=== PATIENT | female | born 1940 | race Caucasian/White ===

== ENCOUNTER → 2017-09-23 12:56 | Outpatient (CLI) | payer MEDICARE, SELFPAY ==
--- NOTE | 2017-09-23 13:07 | XR_ITS ---
EXAM: XR lumbar spine min 4V HISTORY: Left-sided back pain ITS.REASON: LT SCIATICA ORDERING PHYSICIAN: Randall Iqbal MD PATIENT AGE: 77 years FINDINGS: Mild lumbar scoliosis convex right. There is multilevel degenerative disc disease and facet arthritic change. Prominent osteophytes are noted on the right at 405 with multilevel degenerative disc disease from T11 to S1 along with endplate osteophytes at T11 T12 T12 L1 L1 L2 and L2-L3 and L4-L5. Severe facet hypertrophic changes are present as well from L3 to S1 greatest at L4-L5 on the right. There is mild wedging T12 and T11 which may be chronic. IMPRESSION: Moderate to severe spondylosis of the lumbar spine with multilevel degenerative disc disease, bony spurring, and facet arthritic change with scoliosis
--- NOTE | 2017-09-23 13:07 | XR_ITS ---
XR hip LT 2-3V w/pelvis HISTORY: Left-sided pain ITS.REASON: LT SCIATICA ORDERING PHYSICIAN: Randall Iqbal MD PATIENT AGE: 77 years FINDINGS: Mild to moderate osteoarthritic changes are present involving the left hip with decrease in joint space and osteophyte formation. No fracture or dislocation. No lytic or blastic change. Surgical clips are present in the pelvis. There are mild osteoarthritic changes of the right hip and there are degenerative changes in the lower lumbar spine. 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
== END ==
PROVIDERS: PCP Family Medicine; Visit Provider Family Medicine
DX: M54.32 Sciatica, left side (principal)
CPT/HCPCS: 72110; 73502

== ENCOUNTER 2017-11-05 08:00 | Outpatient (RCR) | payer MEDICARE, SELFPAY ==
--- NOTE | 2017-10-08 09:57 | HMH.PTOPEV ---
Rehab Outpatient Evaluation Rehab OP Evaluation Start: 10/08/17 09:25 Freq: Status: Active Protocol: Document 10/08/17 09:25 QUIQUE (Rec: 10/08/17 09:57 QUIQUE [id number]) Electronically Signed By Amari Giles, PT 10/08/17 09:25 Outpatient Therapy Subjective History Subjective History Pt reports insidious onset L hip/ L LE pain beginning ~1 month ago. Pt reports pain started in L glut mm area, with intermittent L knee radicular s/s (weakness and N& T). Pt reports 2 falls d/t L knee buckling. Chief Complaint Pain Gives out/Unstable Paresthesia Weakness Symptom Type Ache Throb Dull Numbness Tingling Symptoms Relieved By Rest/Positioning Symptoms Aggravated By Standing Walking Prior Functional Limitations None Current Functional Limitations Housework Standing Walking Symptom Description Intermittent Level of pain today (0-10) 0 Pain scale - at its best (0-10) 0 Pain scale - at its worst (0-10) 2 Lumbopelvic Eval Posture Thoracic Spine Posture Standing Position Neutral Lumbar Spine Posture Standing Position Neutral Assistive device Assistive Devices None / NA Gait Observation General Gait Pattern Observation No Deviations/Normal Palapation tenderness left buttock tenderness Yes: 1/4 Range of Motion Lumbar Spine Active Flexion Range of 0-40 Motion (degrees) Lumbar Spine Active Extension Range of 0-10 Motion (degrees) Left Lumbar Spine Lateral Flexion Active 0-20 Range of Motion (degrees) Right Lumbar Spine Lateral Flexion 0-20 Active Range of Motion (degrees) Manual Muscle Test Right Knee Extension Strength Grade 5 Normal Knee Flexion Strength Grade 5 Normal Hip Flexion Strength Grade 5 Normal Extensor Hallucis Longus Strength Grade 5 Normal Ankle Dorsiflexion Strength Grade 5 Normal Gastronemius/Soleus Strength Grade 5 Normal Left Knee Extension Strength Grade 5 Normal Knee Flexion Strength Grade 4 Good Hip Flexion Strength Grade 4 Good Extensor Hallucis Longus Strength Grade 4 Good Ankle Dorsiflexion Strength Grade 5 Normal Gastronemius/Soleus Strength Grade 5 Normal DTR Rt Patellar 1+ Lt
== END 2017-11-05 08:01 | disposition home or self-care (01) ==
LOC: PT 08:00
PROVIDERS: Family Provider Family Medicine; PCP Family Medicine; Visit Provider Family Medicine
DX: M54.32 Sciatica, left side (principal)
CPT/HCPCS: 97110; 97163

== ENCOUNTER → 2019-01-21 13:46 | Outpatient (CLI) | payer MEDICARE, SELFPAY ==
--- NOTE | 2019-01-21 13:51 | CT_ITS ---
PROCEDURE: CT ABDOMEN PELVIS WO CON CLINICAL HISTORY: RECURRENT UTIS Pain, recurring UTIs COMPARISON: ABDPELW/O CT ABD PELVIS W/O CONTRAST from 03/08/2014 TECHNIQUE: Axial images obtained with sagittal and coronal reformats. All CT scans at the facility use one or more dose reduction, viz: automated exposure control, ma/kV adjustment per patient size (including targeted exams where dose is matched to indication, i.e. head), or iterative reconstruction technique. FINDINGS: There is a large hiatal hernia with some compressive atelectatic changes in the right lung base. Coronary artery calcifications are noted. The liver, spleen, adrenal glands, pancreas, and gallbladder has an unremarkable unenhanced CT appearance. No renal or ureteral calculi. No hydronephrosis. There is hyperdense nodule along the upper pole of the left kidney which measures 2 cm. The density is 62 Hounsfield units greater than what 1 would expect for simple cyst. Therefore, ultrasound is suggested for further evaluation. No evidence of appendicitis, diverticulitis, intestinal obstruction, or free air. There are post hysterectomy changes. Surgical clips are present in the pelvic region. There is mild amount of retained colonic feces. There are degenerative changes in the lumbar spine with lumbar scoliosis convex right. Mild degenerative changes of the hips. IMPRESSION: Hyperdense 2 cm left renal nodule. Recommend ultrasound for further evaluation to determine cystic or solid nature. No renal or ureteral calculi Large hiatal hernia Dictated by: Renato Watts MD 01/22/2019 05:34 Signed by: <Electronically signed by Renato Watts MD in [place]> 01/22/2019 05:34
== END ==
PROVIDERS: PCP Family Medicine; Visit Provider Family Medicine
DX: N39.0 Urinary tract infection, site not specified (principal)
CPT/HCPCS: 74176

== ENCOUNTER → 2019-02-01 09:57 | Outpatient (CLI) | payer MEDICARE, SELFPAY ==
--- NOTE | 2019-02-01 10:00 | US_ITS ---
PROCEDURE: US KIDNEY CLINICAL INDICATION: NODULE OF KIDNEY Left renal nodule versus complex cyst on recent CT scan COMPARISON: ABDPELW/O CT ABD PELVIS W/O CONTRAST from 03/08/2014 KID US [id number] from 03/30/2014 CT ABDOMEN PELVIS WO CON from 01/21/2019 FINDINGS: The right kidney measures 8 x 4 x 7 cm. There is mild ectasia of the right renal collecting system and mild cortical thinning. There is mild prominence of the right ureter. The left kidney is 10 x 4 x 5 cm. In the upper pole of the left kidney there is a 1.8 by 1.9 cm cyst which may correspond to the CT abnormality. The CT abnormality does appear slightly larger than the above-mentioned measurements however this could be due to difference in scanning techniques. IMPRESSION: Hyperdense nodule of the left kidney may represent a proteinaceous cyst. Consider six-month follow-up to confirm stability Dictated by: Renato Watts MD 02/01/2019 18:09 Signed by: <Electronically signed by Renato Watts MD in [place]> 02/01/2019 18:09
== END ==
PROVIDERS: PCP Family Medicine; Visit Provider Family Medicine
DX: N28.89 Other specified disorders of kidney and ureter (principal)
CPT/HCPCS: 76770

== ENCOUNTER 2020-09-14 09:25 | Emergency (ER) | payer MEDICARE, SELFPAY ==
[2020-09-14 09:26] VITALS: BP 140/76; PULSE 67; RESP 16; TEMP 36.8; O2SAT 98; BMI 28.3
[2020-09-14 09:40] VITALS: BP 140/76; PULSE 67; RESP 16; TEMP 36.8; O2SAT 98; BMI 28.3
--- NOTE | 2020-09-14 09:54 | HMH.EDUTC ---
[facility] Disposition Clinical Impression: Contusion, eye Qualifiers: Encounter type: initial encounter Laterality: left Qualified Code(s): S05.12XA - Contusion of eyeball and orbital tissues, left eye, initial encounter Disposition: Home, Self-Care Condition on Discharge: Good Instructions: DI for Eye Contusion, Eye Contusion Additional Instructions: Ice to the area every 20 minutes several times daily Watch area for signs of worsening if you notice you are having any worsening of bruising or swelling follow up immediately with Family Doctor and/or Dr Simpson at [facility] Return if needed Straight to ER if any life threatening symptoms Referrals: Randall Iqbal MD [Primary Care Provider] - As needed [facility] [Other] Time of Disposition: 10:12 Medical Decision Making - Panchito Inquiry Pt receiving controlled substance: No Panchito was queried for this patient: No Vital Signs: 09/14/20 09:26 09/14/20 09:40 09/14/20 10:15 Temperature 98.3 F 98.3 F 98.3 F Temperature Source Oral Oral Pulse Rate 67 Pulse Rate [Right] 67 67 Respiratory Rate 16 16 16 Blood Pressure 140/76 Blood Pressure [Right Arm] 140/76 140/76 Blood Pressure Mean [Right Arm] 97 97 Blood Pressure Source [Right Arm] Automatic Cuff Blood Pressure Position [Right Arm] Sitting 02 Sat by Pulse Oximetry 98 98 Oxygen Delivery Method Room Air Room Air [facility] HPI - General Stated complaint: left eye bruised Time Seen by Provider: 09/14/20 09:54 Mode of Arrival: Ambulatory Source of Information: Patient Limitations: No Limitations Description of Symptoms (Recalled from Triage Doc. by RN): PATIENT C/O BRUISING TO INNER LEFT EYE. SHE STATES SHE NOTICED IT THIS MORNING WHEN SHE WOKE UP. NO KNOWN INJURY. NO VISION CHANGES. HEENT Symptoms (Recalled from RN notes): Yes Resp Symptoms (Recalled from RN notes): No Skin Symptoms (Recalled from RN notes): No MS Symptoms (Recalled from RN notes): No Functional Status (Recalled from RN notes): WNL - History of Present Illness Provider Complaint: Patient states that she woke up yesterday morning and noticed she had some bruising around the corner of her left eye States that she does not remember doing anything to cause injury but did wear a pair of plastic glasses in bed the night before while reading and they may have caused the bruising States that she did not fall asleep with them on States that she noticed the bruising but area is not tender, not swollen just bruised. States that she has not had any known injury and denies changes in vision. - Related Data Home Medications Medication Instructions Recorded Confirmed gabapentin 100 mg capsule PO #120 cap 02/11/19 02/11/19 hydrochlorothiazide 12.5 mg capsule PO #90 cap 02/11/19 02/11/19 lisinopril 5 mg tablet PO #90 tab 02/11/19 02/11/19 metoprolol succinate 50 mg PO #90 tab 02/11/19 02/11/19 tablet,extended release 24 hr pravastatin 40 mg tablet PO #90 tab 02/11/19 02/11/19 tramadol 37.5 mg-acetaminophen 325 PO #90 tab 02/11/19 02/11/19 mg tablet Previous Rx's Medication Instructions Recorded fluticasone propionate 50 1 spray INTRANASAL DAILY #9.9 g 09/10/18 mcg/actuation nasal spray,suspension montelukast 10 mg tablet 10 mg PO QPM #30 tab 09/10/18 Allergies Allergy/AdvReac Type Severity Reaction Status Date / Time Penicillins Allergy Verified 09/14/20 09:51 - Worker's Comp Is this a Worker's Comp case?: No [facility] History - Hepatitis A Screen Drug use history?: No High risk sexual behaviors?: No History of sexually transmitted infection?: No Currently employed?: No Childcare worker?: No Do you have indoor plumbing?: Yes Do you have electricity?: Yes Attestation statement:: This patient has been screened for Hepatitis A risk factors. I have reviewed the patient's past medical history: Yes - Social History Smoking Status: Never smoker Alcohol Intake: never Occupational Status: o
[2020-09-14 10:15] VITALS: BP 140/76; PULSE 67; RESP 16; TEMP 36.8; O2SAT 98
== END 2020-09-14 10:20 | disposition home or self-care (01) ==
PROVIDERS: Emergency Provider Nurse Practitioner; PCP Family Medicine
DX: S05.12XA Contusion of eyeball and orbital tissues, left eye, initial encounter (principal); I10 Essential (primary) hypertension; Z88.0 Allergy status to penicillin; Z79.899 Other long term (current) drug therapy
CPT/HCPCS: 99202; G0463

== ENCOUNTER → 2021-01-15 10:33 | Outpatient (CLI) | payer MEDICARE, SELFPAY | PROVIDERS: PCP Family Medicine; Visit Provider Family Medicine | DX: Z20.822 Contact with and (suspected) exposure to COVID-19 (principal) | CPT/HCPCS: U0003 ==

== ENCOUNTER → 2021-09-06 12:38 | Outpatient (CLI) | payer MEDICARE, SELFPAY ==
--- NOTE | 2021-09-06 12:47 | US_ITS ---
FINAL REPORT TECHNIQUE: Ultrasound images of the kidneys and bladder were obtained. CLINICAL HISTORY: LT KIDNEY NODULE FINDINGS: The right kidney measures 8.2 cm cm in length. There is renal cortical thinning. There is no hydronephrosis. The left kidney measures 11 cm in length. There is renal cortical thinning. There is a increased echogenicity of the left kidney which is worrisome for medical renal disease. There are several cysts measuring up to 1.9 cm. There is no hydronephrosis. The spleen is unremarkable. IMPRESSION: Bilateral renal cortical thinning. Increased echogenicity of the left kidney worrisome for medical renal disease. Several left renal cysts as described. Reviewed, Interpreted and Dictated by Tono Cerna III, MD Transcribed by Teresa Womack Authenticated by Tono Cerna III, MD on 09/06/2021 04:06:10 PM [facility]
== END ==
PROVIDERS: PCP Family Medicine; Visit Provider Family Medicine
DX: N28.89 Other specified disorders of kidney and ureter (principal)
CPT/HCPCS: 76770

== ENCOUNTER → 2021-10-04 10:39 | Outpatient (CLI) | payer MEDICARE, SELFPAY ==
--- NOTE | 2021-10-04 10:44 | MM_ITS ---
PROCEDURE INFORMATION: Exam: MG Bilateral Screening 3D Mammography Exam date and time: 10/04/2021 10:40 AM Age: 81 years old Clinical indication: Screening examination TECHNIQUE: Imaging protocol: Bilateral Screening tomosynthesis and 2D mammography including computer-aided detection (CAD) when performed. COMPARISON: No relevant prior studies available. FINDINGS: MAMMOGRAPHY: Breast composition: There are scattered areas of fibroglandular density. Mass: None. Architectural distortion: None. Calcifications: No suspicious calcifications. Asymmetric density: None. Skin thickening: None. Axillary adenopathy: None. IMPRESSION: No mammographic evidence of malignancy. Annual screening is recommended unless otherwise clinically indicated. ASSESSMENT: BI-RADS Category 1: Negative
== END ==
PROVIDERS: PCP Family Medicine; Visit Provider Obstetrics & Gynecology
DX: Z12.31 Encounter for screening mammogram for malignant neoplasm of breast (principal)
CPT/HCPCS: 77063; 77067

== ENCOUNTER → 2022-03-06 09:59 | Outpatient (CLI) | payer MEDICARE, SELFPAY ==
[2022-03-06 10:20] LABS: Microscopic, Urine URINE MICROSCOPIC (MICROSCOPIC)
[2022-03-06 10:59] LABS: Basophils # 0.1 K/mm3 (0-0.2); Eosinophils # 0.1 K/mm3 (0.0-0.4); Eosinophils % 1.4 % (0.1-12.0); Lymphocytes # 1.4 K/mm3 (0.7-4.5); Lymphocytes % 17.7 % (10-50); Mean Corpuscular HGB Conc 33.4 g/dL (31.8-35.4); Mean Corpuscular Hemoglobin 32.3 pg (27.0-31.2); Mean Corpuscular Volume 96.7 fl (81-99); Mean Platelet Volume 8.2 fl (7.4-10.4); Monocytes # 0.5 K/mm3 (0.1-1.0); Monocytes % 6.4 % (1.7-9.3); Neutrophils # 5.7 K/mm3 (1.8-7.8); Neutrophils % 73.5 % (37.0-80.0); Platelet Count 279 K/mm3 (142-424); Red Blood Count 4.03 M/mm3 (4.20-5.40); Red Cell Distribution Width 13.3 % (11.5-17.5); White Blood Count 7.7 K/mm3 (4.8-10.8)
[2022-03-06 11:00] LABS: Appearance,Urine CLEAR (Clear); Bilirubin,Urine Negative (Negative); Blood, Urine Negative (Negative); Color,Urine YELLOW (Yellow); Glucose,Urine (UA) Negative (Negative); Ketones,Urine Negative (Negative); Leukocyte Esterase,Urine 1+ (Negative); Nitrate,Urine Negative (Negative); Protein,Urine Negative (Negative); Specific Gravity, Urine 1.015 (1.005-1.030); Urobilinogen,Urine 0.2 EU/dl (0.2)
[2022-03-06 11:08] LABS: Creatinine,Urine Random 138 mg/dL (Not Estab.)
[2022-03-06 11:16] LABS: Bacteria,Urine Trace /lpf; WBC,Urine Occasional #/hpf (0-3)
[2022-03-06 11:22] LABS: Anion Gap 12.9 mEq/L (5-15); Blood Urea Nitrogen 18 mg/dl (7-17); Calcium 9.5 mg/dl (8.4-10.2); Carbon Dioxide 28 mmol/L (22.0-30.0); Chloride 102 mmol/L (98-107); Estimated Glomerular Filt Rate 31 ml/min (>60); GFR (African American) 37 ML/MIN (>60); Glucose 79 mg/dl (74-100); Phosphorous 4.2 mg/dl (2.5-4.5); Potassium 4.9 mmoL/L (3.5-5.1); Sodium 138 mmol/L (136-145)
[2022-03-06 11:34] LABS: Intact Parathyroid Hormone 112.5 pg/mL (7.5-53.5)
[2022-03-06 11:39] LABS: 25-OH Vitamin D, Total 39.6 ng/mL (30-100)
== END ==
PROVIDERS: PCP Family Medicine; Visit Provider Internal Medicine Nephrology
DX: N18.32 Chronic kidney disease, stage 3b (principal); E55.9 Vitamin D deficiency, unspecified; R82.998 Other abnormal findings in urine
CPT/HCPCS: 36415; 80069; 81001; 82306; 82570; 83970; 84155; 85025; 87086

== ENCOUNTER → 2022-03-14 13:14 | Outpatient (POV) | payer MEDICARE, SELFPAY | PROVIDERS: Visit Provider Internal Medicine Nephrology | DX: Z00.00 Encounter for general adult medical examination without abnormal findings (principal) ==

== ENCOUNTER → 2022-06-04 09:50 | Outpatient (CLI) | payer MEDICARE, SELFPAY ==
--- NOTE | 2022-06-04 | CA_ITS ---
FINAL REPORT TECHNIQUE: Color Doppler, duplex Doppler and doherty scale sonography of the bilateral neck arterial vasculature was performed. Velocities were measured in the carotid arteries. Stenosis evaluation based on the validated velocity criteria. CLINICAL HISTORY: .Dizziness, HTN, HLD FINDINGS: The peak systolic velocity of the right common carotid artery is 110 cm/s. The peak systolic velocity of the right internal carotid artery is 101 cm/s and end diastolic velocity 28 cm/s. The ICA/CCA ratio is 1.0. A small amount of plaque is present. The right external carotid artery is patent. The right vertebral artery is patent with antegrade flow. The peak systolic velocity of the left common carotid artery is 109 cm/s. The peak systolic velocity of the left internal carotid artery is 114 cm/s and end diastolic velocity 38 cm/s. The ICA/CCA ratio is 1.1. A small amount of plaque is present. The left external carotid artery is patent.The left vertebral artery is patent with antegrade flow. IMPRESSION: Less than 50% bilateral carotid stenoses. Bilateral patent vertebral arteries with antegrade flow. If indicated, CTA or MRA could further evaluate. Reviewed, Interpreted and Dictated by Tono Cerna III, MD Transcribed by Mary Jackson Authenticated and [facility]
== END ==
PROVIDERS: PCP Family Medicine; Visit Provider Nurse Practitioner Family
DX: R42 Dizziness and giddiness (principal)
CPT/HCPCS: 93880

== ENCOUNTER → 2022-06-13 10:38 | Outpatient (CLI) | payer MEDICARE, SELFPAY ==
[2022-06-13 10:48] LABS: Microscopic, Urine URINE MICROSCOPIC (MICROSCOPIC)
[2022-06-13 11:26] LABS: Hematocrit 36.7 % (37.0-47.0); Hemoglobin 12.2 g/dL (12.2-16.2); Mean Corpuscular HGB Conc 33.3 g/dL (31.8-35.4); Mean Corpuscular Hemoglobin 32.1 pg (27.0-31.2); Mean Corpuscular Volume 96.5 fl (81-99); Platelet Count 245 K/mm3 (142-424); Red Cell Distribution Width 13.3 % (11.5-17.5); White Blood Count 8.1 K/mm3 (4.8-10.8)
[2022-06-13 11:53] LABS: Appearance,Urine CLEAR (Clear); Bilirubin,Urine Negative (Negative); Blood, Urine Negative (Negative); Color,Urine YELLOW (Yellow); Glucose,Urine (UA) Negative (Negative); Ketones,Urine Negative (Negative); Leukocyte Esterase,Urine TRACE (Negative); Nitrate,Urine Negative (Negative); Protein,Urine Negative (Negative); Urobilinogen,Urine 0.2 EU/dl (0.2)
[2022-06-13 11:59] LABS: Albumin Level 4.1 g/dl (3.5-5.0); Chloride 107 mmol/L (98-107); Sodium 139 mmol/L (136-145)
[2022-06-13 12:02] LABS: Blood Urea Nitrogen 20 mg/dl (7-17); Calcium 9.2 mg/dl (8.4-10.2); Carbon Dioxide 24 mmol/L (22.0-30.0); Estimated Glomerular Filt Rate 36 ml/min (>60); GFR (African American) 43 ML/MIN (>60); Glucose 84 mg/dl (74-100); Phosphorous 3.9 mg/dl (2.5-4.5)
[2022-06-13 12:09] LABS: Creatinine,Urine Random 181 mg/dL (Not Estab.)
[2022-06-13 12:25] LABS: Squamous Epithelial Cell,Urine Occasional #/hpf (0-5)
== END ==
PROVIDERS: PCP Psychiatry & Neurology Sleep Medicine; Visit Provider Internal Medicine Nephrology
DX: N28.9 Disorder of kidney and ureter, unspecified (principal)
CPT/HCPCS: 36415; 80069; 81001; 82570; 84155; 85014; 85018; 85048; 85049

== ENCOUNTER → 2022-06-17 13:10 | Outpatient (POV) | payer MEDICARE, SELFPAY | PROVIDERS: Visit Provider Internal Medicine Nephrology | DX: Z00.00 Encounter for general adult medical examination without abnormal findings (principal) ==

== ENCOUNTER → 2022-08-12 09:05 | Outpatient (CLI) | payer MEDICARE, SELFPAY ==
--- NOTE | 2022-08-12 09:09 | XR_ITS ---
FINAL REPORT TECHNIQUE: Bone densitometry calculations of the lumbar spine and hip were obtained. CLINICAL HISTORY: . POST MENOPAUSAL SCREENING FINDINGS: DEXA BONE DENSITY AXIAL SKELETON Using L1-4, the bone mineral density of the spine is 1.261 g/cm2, corresponding to T-score of 1.9. Using the left hip, the bone mineral density of the femoral neck is 0.865 g/cm2, corresponding to a T-score of -0.6. NOTE: T-score: Standard deviation compared with peak bone mass of young adult mean. *Following the recommendations of the International Society of Bone densitometry, classification of hip BMD is based on the lower of two T-scores; total hip or femoral neck. IMPRESSION: Normal bone mineral density of the lumbar spine and left hip. Reviewed, Interpreted and Dictated by Tono Cerna III, MD Transcribed by Teresa Womack Authenticated and [facility]
== END ==
PROVIDERS: PCP Psychiatry & Neurology Sleep Medicine; Visit Provider Family Medicine
DX: Z78.0 Asymptomatic menopausal state (principal)
CPT/HCPCS: 77080

== ENCOUNTER → 2023-01-09 15:04 | Outpatient (CLI) | payer MEDICARE, SELFPAY ==
--- NOTE | 2023-01-09 15:08 | MM_ITS ---
PROCEDURE INFORMATION: Exam: MG Bilateral Screening 3D Mammography Exam date and time: 01/09/2023 2:58 PM Age: 82 years old Clinical indication: Screening examination TECHNIQUE: Imaging protocol: Bilateral Screening tomosynthesis and 2D mammography including computer-aided detection (CAD) when performed. COMPARISON: 1. MG MM DIG SCREENING MAMM BI W/CAD 10/04/2021 10:40 AM 2. MG MAMMO SCREENING DIGITAL TOMOSYNTHESIS BILATERAL W CAD 01/21/2020 12:58 PM FINDINGS: MAMMOGRAPHY: Breast composition: There are scattered areas of fibroglandular density. Mass: None. Architectural distortion: None. Calcifications: No suspicious calcifications. Asymmetric density: None. Skin thickening: None. Axillary adenopathy: None. IMPRESSION: No mammographic evidence of malignancy. Annual screening is recommended unless otherwise clinically indicated. ASSESSMENT: BI-RADS Category 1: Negative
== END ==
PROVIDERS: PCP Psychiatry & Neurology Sleep Medicine; Visit Provider Family Medicine
DX: Z12.31 Encounter for screening mammogram for malignant neoplasm of breast (principal)
CPT/HCPCS: 77063; 77067

== ENCOUNTER → 2023-01-30 14:25 | Outpatient (CLI) | payer MEDICARE, SELFPAY ==
--- NOTE | 2023-01-30 | CA_ITS ---
APPROVED REPORT EXAM: Comprehensive 2D, Doppler, and color-flow Echocardiogram Receiving Lead: Lynne Santiago CRT Ht: 5 ft 0 in Wt: 157lbs BSA: 1.68 BP: 133/76 mmHg Indications: Fatigue, Hyperlipidemia, Hypertension/HDD, CKD 2D Dimensions LVOT 1.66 cm (M/F) 1.5-2.5 LA Volume 41.80 mL LA Volume Index 24.30 mL/m2 (M/F) 16-34 M-Mode Dimensions RVDd 2.21 cm (0.9-2.6) LA Diam 2.85 cm (1.9-4.0) LVDd 3.57 cm (3.5-5.7) Ao Diam 3.07 cm (2.0-3.7) LVDs 1.99 cm (3.5-5.7) IVSd 1.71 cm (0.6-1.1) PWd 0.73 cm (0.6-1.1) EF (Teich) 76.40% FS 44.30% EDV (Teich) 53.30 mL TAPSE 2.42 (<1.7) ESV (Teich) 12.60 mL LV Diastology E Decel Time 263.00 (160-240 msec) E/A Ratio 1.07 MED E' 7.30 (< 7 cm/sec) MED A' 9.10 cm/s E'/MED E' Ratio 13.95 (>14) LAT E' 5.40 (<10 cm/sec) LAT A' 11.10 cm/s E/LAT E' Ratio 18.85 (>14) Aortic Valve AO Peak GR. 9.70 mmHg Mitral Valve MV E Max Davie. 102.00 (40-130 cm/s) MV A Velocity 95.00 (40-130 cm/s) E/A Ratio 1.07 MV Decel. Time 263.00 (160-240 ms) MV PHT 77.00 ms Pulmonary Valve PV Peak Velocity 124.00 (50-150 cm/s) Tricuspid Valve TR P. Velocity 296.00 cm/s RAP Estimate 10.00 mmHg RVSP 45.00 mmHg Left Ventricle The left ventricle is normal size. The left ventricular systolic function is normal. The left ventricular ejection fraction is within the normal range. There is proximal septal thickness present. There is normal LV segmental wall motion. Diastolic function is indeterminate. LVEF is 55%. Right Ventricle The right ventricle is normal size. The right ventricular systolic function is normal. Atria The left atrium size is normal. The right atrium size is normal. There is no Doppler evidence of interatrial shunt. Aortic Valve The aortic valve is mildly thickened. There is no aortic valvular stenosis. No aortic regurgitation is present. Mitral Valve The mitral valve is mildly thickened. No evidence of mitral valve stenosis. Trace mitral regurgitation. Tricuspid Valve The tricuspid valve leaflets are thin and pliable. Trace tricuspid regurgitation. RVSP is 30-35 mmHg. Pulmonic Valve The pulmonary valve is normal in structure. Trace pulmonic regurgitation. Great Vessels The aortic root is normal in size. The ascending aorta is normal in size. IVC is normal in size and collapses >50% with inspiration. Pericardium There is no pericardial effusion. Other Information Study Quality: Fair Conclusion Normal biventricular systolic function. No significant valvular disease. Electronically signed by : Monica Crawley, 01/31/2023 22:13:00
== END ==
PROVIDERS: PCP Psychiatry & Neurology Sleep Medicine; Visit Provider Family Medicine
DX: R53.83 Other fatigue (principal); E78.5 Hyperlipidemia, unspecified; N28.89 Other specified disorders of kidney and ureter; I11.9 Hypertensive heart disease without heart failure; R42 Dizziness and giddiness; R06.09 Other forms of dyspnea
CPT/HCPCS: 93306

== ENCOUNTER → 2023-02-03 10:03 | Outpatient (CLI) | payer MEDICARE, SELFPAY ==
--- NOTE | 2023-02-03 10:18 | US_ITS ---
FINAL REPORT TECHNIQUE: Ultrasound images of the kidneys and bladder were obtained. CLINICAL HISTORY: NODULE COMPARISON: 09/06/2021 FINDINGS: The right kidney measures 8 cm in length. The left kidney measures 10 cm in length. Renal cortical thinning and mild increased echogenicity are once again noted suggestive of medical renal disease. There are multiple small cysts in the left kidney, the largest measuring 2.2 cm in size in the upper pole, slightly larger than noted on the prior exam. There is no hydronephrosis. IMPRESSION: Findings suggestive of medical renal disease, not significantly changed since the prior exam of 2021. Reviewed, Interpreted and Dictated by Celso Bourgeois MD Transcribed by Cecilia Bland Authenticated and . [facility]
== END ==
PROVIDERS: PCP Family Medicine; Visit Provider Family Medicine
DX: N28.89 Other specified disorders of kidney and ureter (principal); R93.422 Abnormal radiologic findings on diagnostic imaging of left kidney
CPT/HCPCS: 76770

== ENCOUNTER → 2023-02-13 13:20 | Outpatient (POV) | payer MEDICARE, SELFPAY | PROVIDERS: Visit Provider Internal Medicine Nephrology | DX: Z00.00 Encounter for general adult medical examination without abnormal findings (principal) ==

== ENCOUNTER → 2023-04-09 12:30 | Outpatient (CLI) | payer MEDICARE, SELFPAY ==
--- NOTE | 2023-04-09 13:13 | XR_ITS ---
FINAL REPORT CLINICAL HISTORY: shortness of breath with exertion COMPARISON: None FINDINGS: Two views of the chest were obtained. The heart size and pulmonary vascularity are within normal limits. The mediastinum is normal. There is a large hiatal hernia. No acute pulmonary abnormality is identified. There is no pneumothorax. The bony thorax is intact. IMPRESSION: No active cardiopulmonary disease. Reviewed, Interpreted and Dictated by Tono Cerna III, MD Transcribed by Diamante Franks Authenticated and . [facility]
[2023-04-09 13:23] LABS: Basophils # 0.1 K/mm3 (0-0.2); Basophils % 0.7 % (0.1-2.0); Eosinophils # 0.2 K/mm3 (0.0-0.4); Eosinophils % 1.7 % (0.1-12.0); Hematocrit 39.9 % (37.0-47.0); Hemoglobin 14.1 g/dL (12.2-16.2); Lymphocytes # 2.1 K/mm3 (0.7-4.5); Lymphocytes % 22.8 % (10-50); Mean Corpuscular HGB Conc 35.3 g/dL (31.8-35.4); Mean Corpuscular Hemoglobin 33.7 pg (27.0-31.2); Mean Corpuscular Volume 95.4 fl (81-99); Mean Platelet Volume 8.2 fl (7.4-10.4); Monocytes # 0.6 K/mm3 (0.1-1.0); Neutrophils # 6.4 K/mm3 (1.8-7.8); Neutrophils % 68.8 % (37.0-80.0); Platelet Count 259 K/mm3 (142-424); Red Blood Count 4.18 M/mm3 (4.20-5.40); Red Cell Distribution Width 13.1 % (11.5-17.5); White Blood Count 9.3 K/mm3 (4.8-10.8)
[2023-04-09 13:35] LABS: Alanine Aminotransferase 34 U/L (12-78); Albumin Level 4.4 g/dl (3.5-5.0); Albumin/Globulin Ratio 1.4 (1.1-1.8); Alkaline Phosphatase 47 U/L (38-126); Anion Gap 13.5 mEq/L (5-15); Aspartate Amino Transferase 39 U/L (14-36); Bilirubin,Total 0.4 mg/dl (0.2-1.3); Blood Urea Nitrogen 19 mg/dl (7-17); Carbon Dioxide 26 mmol/L (22.0-30.0); Chloride 104 mmol/L (98-107); Estimated Glomerular Filt Rate 33 ml/min (>60); GFR (African American) 40 ML/MIN (>60); Globulin 3.1 g/dL (1.3-3.2); Glucose 92 mg/dl (74-100); Potassium 4.5 mmoL/L (3.5-5.1); Sodium 139 mmol/L (136-145); Total Protein,Serum 7.5 g/dl (6.3-8.2)
[2023-04-09 14:42] LABS: Vitamin B12 845 pg/mL (239-931)
[2023-04-09 17:09] LABS: Folate > 20.00 ng/mL
[2023-04-09 17:52] LABS: Ferritin 213 ng/ml (11.1-264)
[2023-04-10 11:28] LABS: Rapid Plasma Reagin Ab Titer Non Reactive titer (NonRea<1:1)
[2023-04-10 13:20] LABS: Anti-Centromere B Antibodies <0.2 AI (0.0-0.9); Anti-DNA (DS) Ab Qn 44 IU/mL (0-9); Anti-Jo-1 <0.2 AI (0.0-0.9); Antichromatin Antibodies <0.2 AI (0.0-0.9); Antiscleroderma-70 Antibodies <0.2 AI (0.0-0.9); RNP Antibodies <0.2 AI (0.0-0.9); Sjogren's Anti-SS-A <0.2 AI (0.0-0.9); Sjogren's Anti-SS-B <0.2 AI (0.0-0.9)
[2023-04-17 10:00] LABS: Anti-DNA (DS) Ab Charge YES; Antinuclear Antibodies (ANA) Positive
[2023-04-17 10:01] LABS: Anti-Centromere B Abs Charge YES; Anti-Jo-1 Charge YES; Antichromatin Abs Charge YES; Antiscleroderma-70 Abs Charge YES; PTH Related Peptide < 2.0; RNP Antibodies Charge YES; Sjogren's Anti-SS-A Ab Charge YES; Sjogren's Anti-SS-B Ab Charge YES; Smith Antibodies Charge YES
== END ==
PROVIDERS: PCP Family Medicine; Visit Provider Nurse Practitioner Family
DX: E78.5 Hyperlipidemia, unspecified (principal); I10 Essential (primary) hypertension; R00.1 Bradycardia, unspecified; R06.09 Other forms of dyspnea; R53.83 Other fatigue; R41.3 Other amnesia
CPT/HCPCS: 71046; 80053; 82397; 82607; 82728; 82746; 84443; 85025; 86038; 86225; 86235; 86593; 93270

== ENCOUNTER → 2023-04-14 10:33 | Outpatient (CLI) | payer MEDICARE, SELFPAY ==
--- NOTE | 2023-04-14 | CA_ITS ---
APPROVED REPORT Exam: Pharmacologic Technologist: Rebecca Jalloh Ht: 5 ft 3 in Wt: 155 lbs BSA: 1.74 m2 HR: 65 bpm BP: 140/71 mmHg Rhythm: NSR Medical History Medications: Lisinopril,,,,, Metoprolol,,,,, Gabapentin,,,,, Zetia,,,,, HCTZ,,,,, Flonase,,,,, Ropinirole,,,,, Montelukast,,,,, DONEPEZIL,,,,, Pravasatin,,,,, Stress Test Details Test: LEXISCAN HR Resting HR: 61 bpm Max Heart Rate (APMHR): 137 bpm Max HR Achieved: 77 bpm Target HR (85% APMHR): 116 bpm % of APMHR: 56 Recovery HR: 73 bpm BP Resting BP: 140.0/71.0 mmHg Max BP: 169.0/73.0 mmHg Recovery BP: 164.0/75.0 mmHg ECG Resting ECG: Sinus rhythm Arrhythmia: None Clinical Exercise duration: 04:00 min Highest Stage Achieved: Exercise capacity: 1.0 METs Stress ECG Conclusion Symptoms: Dyspnea, headache Arrhythmias/Ectopy: None ST-T Changes: No significant ST changes Conclusion: Unremarkable Lexiscan stress test. Myoview images are reported separately. Test Summary REST 02:23 . . 61 . 140/ 71 . . Stage 1 . . . . . . . Myoview Injected Stage 1 01:00 . . 72 . . . . Stage 2 01:00 . . 75 . . . . Stage 3 01:00 . . 75 . 148/ 69 . . Stage 4 01:00 . . 74 . 159/ 73 . Stop exercise at 04:00 RECOVERY 01:00 . . 74 . . . . RECOVERY 02:00 . . 74 . 169/ 73 . . RECOVERY 03:00 . . 74 . 157/ 77 . . RECOVERY 03:43 . . 73 . 164/ 75 . . Electronically signed by : Monica Crawley MD 04/16/2023 14:34:55
--- NOTE | 2023-04-14 10:33 | NM_ITS ---
APPROVED REPORT Exam: Nuclear Stress Test Indication: HTN, HYPERLIPIDEMIA, FM HX, BRADYCARDIA, SOB, FATIGUE Patient Location: Outpatient Stress Tech: Yessenia Garcia AR Tech:Diane MaxwellRANDAL RT (R)(N)(M) Ht: 5 ft 3 in Wt: 140 lbs Bra Size: C HR: 65 bpm BP: 140/71 mmHg BSA: 1.66 m2 TID: 0.92 BMI: 24.7 History: HTN, HYPERLIPIDEMIA, FM HX, BRADYCARDIA, SOB, FATIGUE Procedure: Patient received 0.4 mg of intravenous Lexiscan, resting heart rate 65 bpm, resting blood pressure 140/71 mmHg, with Lexiscan maximum heart rate achieved was 75 bpm which is % of the maximum predicted heart rate and blood pressure was 143/68 mmHg. With Lexiscan, patient denied any complaint of chest pain. Cardiac Stress and Resting SPECT Images: Cardiac Stress and Resting SPECT images were obtained using technetium 99m Myoview 31.7 mCi stress and 10.65 mCi at rest. Resting and stress imaging in supine and prone positions demonstrate no evidence of fixed or reversible perfusion defects. Gated imaging demonstrates normal global and regional LV systolic function. LVEF is calculated at > 75%. Conclusion: No evidence of fixed or reversible perfusion defects. Gated imaging demonstrates normal global and regional LV systolic function. LVEF is calculated at > 75%. Electronically signed by : Monica Crawley MD 04/16/2023 14:36:18
== END ==
PROVIDERS: PCP Family Medicine; Visit Provider Nurse Practitioner Family
DX: E78.5 Hyperlipidemia, unspecified (principal); I10 Essential (primary) hypertension; R06.09 Other forms of dyspnea; R53.83 Other fatigue; R00.1 Bradycardia, unspecified
CPT/HCPCS: 78452; 93017; A9502; J2785

== ENCOUNTER → 2023-04-21 14:14 | Outpatient (CLI) | payer MEDICARE, SELFPAY ==
--- NOTE | 2023-04-21 14:16 | CA_ITS ---
FINAL REPORT TECHNIQUE: Real-time imaging was performed of the extracranial carotid arteries in transverse and longitudinal planes, with color duplex evaluation of blood flow velocity. Spectral analysis was performed. The cervical vertebral arteries were also examined. CLINICAL HISTORY: BRUIT,HTN,HLD COMPARISON: 06/03/2022 FINDINGS: NASCET technique is utilized for stenosis evaluation. Right carotid system (centimeters/second): CCA: 122 ICA: 117 ECA: 142 Vertebral artery: Antegrade ICA/CCA ratio: 1.1 Moderate plaque is identified at the bifurcation. Left carotid system (centimeters/second): CCA: 105 ICA: 103 ECA: 125 Vertebral artery: Antegrade ICA/CCA ratio: 1 Moderate plaque is identified at the bifurcation. IMPRESSION: Less than 50% right ICA stenosis. Less than 50% left ICA stenosis. Antegrade flow bilateral vertebral arteries. Reviewed, Interpreted and Dictated by Celso Bourgeois MD Transcribed by Cecilia Bland Authenticated and [facility]
--- NOTE | 2023-04-21 14:16 | CA_ITS ---
APPROVED REPORT EXAM: Comprehensive 2D, Doppler, and color-flow Echocardiogram Apprentice Machinist Outside: Leigh Demarco RDCS Ht: 5 ft 3 in Wt: 155lbs BSA: 1.74 BP: 140/82 mmHg Indications: SOA,BRADYCARDIA,HTN,HLP 2D Dimensions LVOT 1.55 cm (M/F) 1.5-2.5 M-Mode Dimensions RVDd 2.06 cm (0.9-2.6) LA Diam 2.48 cm (1.9-4.0) LVDd 3.56 cm (3.5-5.7) Ao Diam 2.32 cm (2.0-3.7) LVDs 2.03 cm (3.5-5.7) IVSd 1.03 cm (0.6-1.1) PWd 0.81 cm (0.6-1.1) EF (Teich) 75.10% FS 43.00% EDV (Teich) 53.00 mL ESV (Teich) 13.20 mL LV Diastology E Decel Time 300.00 (160-240 msec) E/A Ratio 0.8 MED E' 4.60 (< 7 cm/sec) E'/MED E' Ratio 15.57 (>14) LAT E' 4.30 (<10 cm/sec) E/LAT E' Ratio 16.65 (>14) Aortic Valve LVOT Max 111.00 (70-110 cm/s) LVOT VTI 24.09 cm AoV Peak Davie. 193.00 (50-130 cm/s) AO Peak GR. 14.90 mmHg AO Mean GR. 7.30 (<5 mmHg) AO VTI 36.56 (18-25 cm) JARED (VTI) 1.24 (2.5-4.5 cm2) Mitral Valve MV E Max Davie. 72.00 (40-130 cm/s) MV A Velocity 88.00 (40-130 cm/s) E/A Ratio 0.82 MV Decel. Time 300.00 (160-240 ms) MV PHT 88.00 ms Tricuspid Valve TR P. Velocity 291.00 cm/s RAP Estimate 10.00 mmHg RVSP 44.00 mmHg Left Ventricle The left ventricle is normal size. The left ventricular systolic function is normal. The left ventricular ejection fraction is within the normal range. There is increased LV wall thickness. There is normal LV segmental wall motion. Diastolic function is indeterminate. LVEF is 65%. Right Ventricle The right ventricle is normal size. The right ventricular systolic function is normal. Atria The left atrium size is mildly dilated. The right atrium size is normal. There is no Doppler evidence of interatrial shunt. Aortic Valve The aortic valve is mildly thickened. There is aortic sclerosis, but without stenosis. No aortic regurgitation is present. Mitral Valve The mitral valve is mildly thickened. No evidence of mitral valve stenosis. Mild mitral regurgitation. Tricuspid Valve The tricuspid valve leaflets are thin and pliable. Mild tricuspid regurgitation. RVSP is 35-40 mmHg. Pulmonic Valve The pulmonary valve is normal in structure. Trace pulmonic regurgitation. Great Vessels The aortic root is normal in size. The ascending aorta is normal in size. IVC is normal in size and collapses >50% with inspiration. Pericardium There is no pericardial effusion. An epicardial fat pad is noted. Other Information Study Quality: Fair Conclusion Normal biventricular systolic function. Mild LA dilation. Mild MR, Mild TR. Elevated RVSP 35-40 mmHg. Electronically signed by : Monica Crawley MD 04/26/2023 20:07:23
== END ==
PROVIDERS: PCP Family Medicine; Visit Provider Nurse Practitioner Family
DX: R06.09 Other forms of dyspnea (principal); R09.89 Other specified symptoms and signs involving the circulatory and respiratory systems; E78.5 Hyperlipidemia, unspecified; I10 Essential (primary) hypertension; R53.83 Other fatigue; R41.3 Other amnesia
CPT/HCPCS: 93306; 93880; 94762

== ENCOUNTER → 2023-05-09 09:57 | Outpatient (CLI) | payer MEDICARE, SELFPAY | PROVIDERS: PCP Family Medicine; Visit Provider Nurse Practitioner Family | DX: R41.3 Other amnesia (principal); R53.83 Other fatigue; G93.40 Encephalopathy, unspecified | CPT/HCPCS: 95819 ==

== ENCOUNTER 2023-06-15 10:51 | Outpatient (CLI) | payer MEDICARE, SELFPAY ==
[2023-06-15 11:46] LABS: Chloride 106 mmol/L (98-107); Potassium 4.6 mmoL/L (3.5-5.1); Sodium 136 mmol/L (136-145)
[2023-06-15 11:49] LABS: Alanine Aminotransferase 35 U/L (12-78); Albumin/Globulin Ratio 1.4 (1.1-1.8); Alkaline Phosphatase 50 U/L (38-126); Anion Gap 11.6 mEq/L (5-15); Aspartate Amino Transferase 36 U/L (14-36); Bilirubin,Total 0.4 mg/dl (0.2-1.3); Blood Urea Nitrogen 30 mg/dl (7-17); Carbon Dioxide 23 mmol/L (22.0-30.0); Estimated Glomerular Filt Rate 27 ml/min (>60); GFR (African American) 32 ML/MIN (>60); Globulin 2.8 g/dL (1.3-3.2); Total Protein,Serum 6.8 g/dl (6.3-8.2)
[2023-06-15 11:50] LABS: Calcium 9.5 mg/dl (8.4-10.2); Glucose 91 mg/dl (74-100)
== END 2023-06-15 23:59 ==
LOC: LAB 10:53
PROVIDERS: PCP Family Medicine; Visit Provider Nurse Practitioner Family
DX: E78.5 Hyperlipidemia, unspecified (principal); I27.21 Secondary pulmonary arterial hypertension; R06.00 Dyspnea, unspecified; R53.83 Other fatigue
CPT/HCPCS: 36415; 80053

== ENCOUNTER 2023-06-18 16:20 | Outpatient (CLI) | payer MEDICARE, SELFPAY ==
--- NOTE | 2023-06-18 16:20 | MR_ITS ---
FINAL REPORT CLINICAL HISTORY: memory loss, ptosis, abn EEG left frontotemp reg COMPARISON: None FINDINGS: Multiplanar MR imaging of the brain was performed without contrast. There is age-appropriate atrophy, however the anterior temporal lobes are significantly atrophic, out of proportion to the rest of the brain. There are scattered foci of increased T2 signal in the cerebral white matter that have a nonspecific appearance but likely represent mild chronic ischemic/gliotic changes. There is no evidence of intracranial hemorrhage or mass. No abnormal ventricular dilatation is identified. No abnormal extra-axial fluid collection is seen. No abnormality is seen on the diffusion weighted images. The posterior fossa and brainstem are unremarkable. Normal major vessel vascular flow voids are seen. There is fluid signal present in the right mastoid air cells. IMPRESSION: Age-appropriate atrophy and mild chronic ischemic/gliotic changes. However, there is marked atrophy in the anterior temporal lobes out of proportion to the rest of the atrophy seen, which may represent frontotemporal lobar degeneration. No acute intracranial abnormality. Fluid signal present in the right mastoid air cells. Reviewed, Interpreted and Dictated by Tono Cerna III, MD Transcribed by Cecilia Bland Authenticated and [facility]
== END 2023-06-18 23:59 ==
LOC: RAD 16:20
PROVIDERS: PCP Family Medicine; Visit Provider Nurse Practitioner Family
DX: R41.3 Other amnesia (principal); H02.409 Unspecified ptosis of unspecified eyelid; R94.01 Abnormal electroencephalogram [EEG]
CPT/HCPCS: 70551

== ENCOUNTER 2023-08-14 09:29 | Outpatient (CLI) | payer MEDICARE, SELFPAY ==
[2023-08-14 09:46] LABS: Microscopic, Urine URINE MICROSCOPIC (MICROSCOPIC)
[2023-08-14 10:06] LABS: Hematocrit 36.7 % (37.0-47.0); Hemoglobin 12.3 g/dL (12.2-16.2); Mean Corpuscular HGB Conc 33.4 g/dL (31.8-35.4); Mean Corpuscular Hemoglobin 33.1 pg (27.0-31.2); Platelet Count 269 K/mm3 (142-424); Red Blood Count 3.71 M/mm3 (4.20-5.40); Red Cell Distribution Width 13.4 % (11.5-17.5); White Blood Count 8.9 K/mm3 (4.8-10.8)
[2023-08-14 10:07] LABS: Appearance,Urine CLEAR (Clear); Blood, Urine Negative (Negative); Color,Urine YELLOW (Yellow); Glucose,Urine (UA) Negative (Negative); Ketones,Urine Negative (Negative); Leukocyte Esterase,Urine 2+ (Negative); Nitrate,Urine POSITIVE (Negative); Protein,Urine Negative (Negative); Urobilinogen,Urine 0.2 EU/dl (0.2)
[2023-08-14 10:13] LABS: Bilirubin,Urine 1+ (Negative)
[2023-08-14 10:30] LABS: Anion Gap 10.4 mEq/L (5-15); Blood Urea Nitrogen 22 mg/dl (7-17); Calcium 9.6 mg/dl (8.4-10.2); Carbon Dioxide 27 mmol/L (22.0-30.0); Chloride 109 mmol/L (98-107); Estimated Glomerular Filt Rate 29 ml/min (>60); GFR (African American) 35 ML/MIN (>60); Glucose 75 mg/dl (74-100); Phosphorous 3.6 mg/dl (2.5-4.5); Potassium 4.4 mmoL/L (3.5-5.1); Sodium 142 mmol/L (136-145)
[2023-08-14 10:33] LABS: Creatinine,Urine Random 170 mg/dL (Not Estab.)
[2023-08-14 10:40] LABS: Bacteria,Urine 2+ /lpf; WBC,Urine 20-50 #/hpf (0-3)
[2023-08-14 10:43] LABS: Intact Parathyroid Hormone 93.2 pg/mL (7.5-53.5)
== END 2023-08-14 23:59 ==
LOC: LAB 09:32
PROVIDERS: PCP Psychiatry & Neurology Sleep Medicine; Visit Provider Internal Medicine Nephrology
DX: N18.32 Chronic kidney disease, stage 3b (principal); R82.90 Unspecified abnormal findings in urine; B96.29 Other Escherichia coli [E. coli] as the cause of diseases classified elsewhere
CPT/HCPCS: 36415; 80069; 81001; 82306; 82570; 83970; 84155; 85014; 85018; 85048; 85049; 87086

== ENCOUNTER 2023-08-18 16:07 | Outpatient (POV) | payer MEDICARE, SELFPAY | END 2023-08-18 23:59 | disposition home or self-care (01) | LOC: SC 16:08 | PROVIDERS: Visit Provider Internal Medicine Nephrology | DX: Z00.00 Encounter for general adult medical examination without abnormal findings (principal) ==

== ENCOUNTER 2023-10-27 15:23 | Outpatient (CLI) | payer MEDICARE, SELFPAY ==
--- NOTE | 2023-10-27 15:29 | XR_ITS ---
FINAL REPORT CLINICAL HISTORY: LEFT KNEE PAIN, nki COMPARISON: None FINDINGS: 3 images of the left knee were obtained. There is no evidence of fracture or dislocation. There is minimal sharpening of the tibial spines. A trace joint effusion is present. There is no soft tissue abnormality identified. IMPRESSION: No acute bony abnormality. Minimal sharpening of the tibial spines with a trace joint effusion. Reviewed, Interpreted and Dictated by Celso Bourgeois MD Transcribed by Cecilia Bland Authenticated and [facility]
== END 2023-10-27 23:59 | disposition home or self-care (01) ==
LOC: RAD 15:24
PROVIDERS: PCP Family Medicine; Visit Provider Nurse Practitioner Family
DX: M25.562 Pain in left knee (principal)
CPT/HCPCS: 73562

== ENCOUNTER 2024-03-02 14:04 | Outpatient (CLI) | payer MEDICARE, SELFPAY ==
--- NOTE | 2024-03-02 14:10 | MM_ITS ---
PROCEDURE INFORMATION: Exam: MG Bilateral Screening 3D Mammography Exam date and time: 03/02/2024 2:00 PM Age: 83 years old Clinical indication: Screening examination TECHNIQUE: Imaging protocol: Bilateral Screening tomosynthesis and 2D mammography including computer-aided detection (CAD) when performed. COMPARISON: 1. MG MM DIG SCREENING MAMM BI W/CAD 01/09/2023 2:58 PM 2. MG MM DIG SCREENING MAMM BI W/CAD 10/04/2021 10:40 AM FINDINGS: MAMMOGRAPHY: Breast composition: The breasts are almost entirely fatty. Mass: None. Architectural distortion: None. Calcifications: No suspicious calcifications. Asymmetric density: None. Skin thickening: None. Axillary adenopathy: None. IMPRESSION: No mammographic evidence of malignancy. Annual screening is recommended unless otherwise clinically indicated. ASSESSMENT: BI-RADS Category 1: Negative.
== END 2024-03-02 23:59 | disposition home or self-care (01) ==
LOC: RAD 14:06
PROVIDERS: PCP Family Medicine; Visit Provider Family Medicine
DX: Z12.31 Encounter for screening mammogram for malignant neoplasm of breast (principal)
CPT/HCPCS: 77063; 77067

== ENCOUNTER 2024-05-10 10:54 | Outpatient (CLI) | payer MEDICARE, SELFPAY ==
[2024-05-10 11:01] LABS: Microscopic, Urine URINE MICROSCOPIC (MICROSCOPIC)
[2024-05-10 11:22] LABS: Hematocrit 36.6 % (37.0-47.0); Hemoglobin 12.7 g/dL (12.2-16.2); Mean Corpuscular HGB Conc 34.6 g/dL (31.8-35.4); Mean Corpuscular Hemoglobin 33.1 pg (27.0-31.2); Mean Corpuscular Volume 95.5 fl (81-99); Platelet Count 256 K/mm3 (142-424); Red Blood Count 3.83 M/mm3 (4.20-5.40); Red Cell Distribution Width 13.4 % (11.5-17.5); White Blood Count 8.4 K/mm3 (4.8-10.8)
[2024-05-10 11:42] LABS: Appearance,Urine CLOUDY (Clear); Bilirubin,Urine Negative (Negative); Blood, Urine Negative (Negative); Color,Urine YELLOW (Yellow); Glucose,Urine (UA) Negative (Negative); Ketones,Urine TRACE (Negative); Leukocyte Esterase,Urine 2+ (Negative); Nitrate,Urine POSITIVE (Negative); Protein,Urine Negative (Negative); Urobilinogen,Urine 0.2 EU/dl (0.2)
[2024-05-10 11:52] LABS: Creatinine,Urine Random 176 mg/dL (Not Estab.)
[2024-05-10 12:00] LABS: Bacteria,Urine 2+ /lpf; RBC,Urine Occasional #/hpf (0-3); WBC,Urine 20-50 #/hpf (0-3)
[2024-05-10 12:30] LABS: Anion Gap 11.5 mEq/L (5-15); Blood Urea Nitrogen 28 mg/dl (7-17); Calcium 9.9 mg/dl (8.4-10.2); Carbon Dioxide 24 mmol/L (22.0-30.0); Chloride 108 mmol/L (98-107); Estimated Glomerular Filt Rate 31 ml/min (>60); GFR (African American) 37 ML/MIN (>60); Glucose 79 mg/dl (74-100); Potassium 4.5 mmoL/L (3.5-5.1); Sodium 139 mmol/L (136-145)
== END 2024-05-10 23:59 | disposition home or self-care (01) ==
LOC: LAB 10:56
PROVIDERS: PCP Family Medicine; Visit Provider Internal Medicine Nephrology
DX: N18.32 Chronic kidney disease, stage 3b (principal); N39.0 Urinary tract infection, site not specified
CPT/HCPCS: 36415; 80069; 81001; 82570; 84156; 85027; 87086; 87088; 87186

== ENCOUNTER 2024-08-05 14:35 | Outpatient (CLI) | payer MEDICARE, SELFPAY ==
--- NOTE | 2024-08-05 14:57 | ECG_ITS ---
APPROVED REPORT Exam: Resting ECG HR:62 bpm ECG Measurements Heart Rate 62 AXES TN 144 P 13 QRSd 93 QRS 45 QT 402 T 22 QTc 407 Conclusion SINUS RHYTHM WITH OCCASIONAL VENTRICULAR PREMATURE COMPLEXES LOW QRS VOLTAGE IN PRECORDIAL LEADS [QRS DEFLECTION < 1.0 mV IN CHEST LEADS] BORDERLINE ECG UNCONFIRMED REPORT Electronically signed by : Umair Vela MD 08/07/2024 13:29:08
== END 2024-08-05 23:59 | disposition home or self-care (01) ==
LOC: RT 14:36
PROVIDERS: PCP Family Medicine; Visit Provider Family Medicine
DX: I49.9 Cardiac arrhythmia, unspecified (principal)
CPT/HCPCS: 93005

== ENCOUNTER 2024-11-10 09:48 | Outpatient (CLI) | payer MEDICARE, SELFPAY ==
[2024-11-10 09:54] LABS: Microscopic, Urine URINE MICROSCOPIC (MICROSCOPIC)
[2024-11-10 10:10] LABS: Appearance,Urine CLOUDY (Clear); Bilirubin,Urine Negative (Negative); Blood, Urine Negative (Negative); Color,Urine YELLOW (Yellow); Glucose,Urine (UA) Negative (Negative); Ketones,Urine Negative (Negative); Leukocyte Esterase,Urine 1+ (Negative); Nitrate,Urine POSITIVE (Negative); Protein,Urine TRACE (Negative); Urobilinogen,Urine 0.2 EU/dl (0.2)
[2024-11-10 10:12] LABS: Hematocrit 35.7 % (37.0-47.0); Hemoglobin 12.1 g/dL (12.2-16.2); Mean Corpuscular HGB Conc 33.9 g/dL (31.8-35.4); Mean Corpuscular Hemoglobin 33.2 pg (27.0-31.2); Mean Corpuscular Volume 97.8 fl (81-99); Nucleated Red Blood Cells # 0 10^3/uL; Nucleated Red Blood Cells % 0 %; Platelet Count 228 K/mm3 (142-424); Red Blood Count 3.65 M/mm3 (4.20-5.40); Red Cell Distribution Width 12.6 % (11.5-17.5); Red Cell Distribution Width-SD 45.3 fL; White Blood Count 8.4 K/mm3 (4.8-10.8)
[2024-11-10 10:20] LABS: Microalbumin/Creatinine Ratio 64.1
[2024-11-10 10:21] LABS: Bacteria,Urine 4+ /lpf; Squamous Epithelial Cell,Urine Occasional #/hpf (0-5)
[2024-11-10 10:27] LABS: Creatinine,Urine Random 118 mg/dL (Not Estab.)
[2024-11-10 10:33] LABS: Albumin Level 4.1 g/dl (3.5-5.0); Blood Urea Nitrogen 23 mg/dl (7-17); Calcium 9.6 mg/dl (8.4-10.2); Carbon Dioxide 26 mmol/L (22.0-30.0); Chloride 111 mmol/L (98-107); Estimated Glomerular Filt Rate 33 ml/min (>60); GFR (African American) 40 ML/MIN (>60); Glucose 88 mg/dl (74-100); Phosphorous 2.9 mg/dl (2.5-4.5); Sodium 144 mmol/L (136-145)
[2024-11-10 10:44] LABS: Intact Parathyroid Hormone 86.3 pg/mL (7.5-53.5)
[2024-11-10 10:50] LABS: 25-OH Vitamin D, Total 41.8 ng/mL (30-100)
== END 2024-11-10 23:59 | disposition home or self-care (01) ==
LOC: LAB 09:49
PROVIDERS: PCP Family Medicine; Visit Provider Student in an Organized Health Care Education/Training Program
DX: N18.32 Chronic kidney disease, stage 3b (principal); E83.9 Disorder of mineral metabolism, unspecified; M89.9 Disorder of bone, unspecified
CPT/HCPCS: 36415; 80069; 81001; 82043; 82306; 82570; 83970; 84156; 85027; 87086; 87088; 87186

== ENCOUNTER 2025-01-28 14:50 | Outpatient (CLI) | payer MEDICARE, SELFPAY ==
--- OUTSIDE RECORDS SUMMARY | 2024-11-04 09:30 | XMS_ITS ---
Author Organization [facility] Address [address] [facility] [address] [place] [id number] Care Team Providers Care Tank Welder Name Role Phone Destinee Iqbal Primary Care Provider Allergies Allergen (clinical drug ingredient) Drug/Non Drug Allergy documented on EMR Reaction Allergy Type Onset Date Status Penicillin Unknown Drug Allergy Active Results Component Value Reference Range Notes P-Comprehensive Metabolic Pa adair (CMP) Reviewed date:01/07/2025 09:35:01 AM Interpretation:gluc 108, bun 34, Cr 1.99, gfr 24 Performing Lab: Notes/Report: Test performed by [facility], [address] , [address], [place] [address] Adolfo Chu MD, Long Term Care Social Worker CLIA: [id number] Sodium 142 135-145 mmol/L Potassium 4.3 3.5-5.3 [...] Problem Body mass index 30+ - obesity (895410580) BMI 30.0-30.9,a dult (Z68.30) Active confirmed Vital Signs Blood pressure systolic 160 mm Hg 11/05/19 25 Blood pressure diastolic 72 mm Hg 025 Heart Rate 62 /min 11/04/2024 Height 60 in 11/04/2024 Weight 154.0 lbs 11/04/2024 BMI 30.07 kg/m2 11/04/2024 Encounters Encounter Location Date Provider Diagnosis [facility] [address] [facility] [address] [place], [place] [id number] 11/04/2024 Destinee Iqbal Stage 3b chronic kid [...] Details Follow Up: 4 Months, Reason: Provider Name:Myranda balderas, 01/28/2025 02:00:00 PM, [address] [facility], [address], [place], [phone], Provider Name:Destinee funk, 03/07/2025 01:00:00 PM, [address] [facility], [address], [place], [place], [phone], Progress Notes * GERALDO EARLYDOB:1940 (84 yo F)Acc No.[id number]:11/04/2024 Progress Notes Patient: GERALDO LYONS Provider: Destinee Iqbal M.D. :1940 A ge:84 Y S ex:Female Date:11/04/2024 Address:[address] [place], [place] [id number] Subjective: * Chief Complaints: * 1 . 4 week f/u. * HPI: H ip/Thigh: Pt is here for a follow up on hip and leg pain. After leaving off Statin she states her pain is about the same. Pt rates her pain about 6/10. Pt is not fasting. Pt needs a refill of Gabapentin sent to [facility]. 84 year old female presents with [...] * Images: Billing Information: * Visit Code: 63980 Office Visit, Est Pt., Level 4. * Procedure Codes: G2211 Complex e/m visit add on. G8950 PREHTN/HTN BP DOC INDCD F/U DOC. G8753 MOST RECENT SYSTOLIC BP >= 140MM HG. G8754 MOST RECENT DIASTOLIC BP < 90MM HG. 1036F TOBACCO NON-USER. * Electronic signature of Destinee Iqbal MD on 01/28/2025 at 02:53 PM EDT Sign off status: Pending * Provider: Destinee Iqbal M.D. Date: 0 11/04/2024 Generated for Allie pool/Desirae/Freedomitting on: 0 01/28/2025 02:53 PM EDT History and Physical Notes * HPI [...]
--- OUTSIDE RECORDS SUMMARY | 2025-01-28 14:54 | XMS_ITS | Patient Health Record ---
Author Organization [facility] Address [address] [facility] [address] [place] [id number] Care Team Providers Care Microarray Specialist Name Role Phone Destinee Iqbal Primary Care Provider Myranda Martins Unavailable [phone] Allergies Allergen (clinical drug ingredient) Drug/Non Drug Allergy documented on EMR Reaction Allergy Type Onset Date Status Penicillin Unknown Drug Allergy Active Results Component Value Reference Range Notes P-Comprehensive Metabolic Pa adair (CMP) Reviewed date:01/07/2025 09:35:01 AM Interpretation:gluc 108, bun 34, Cr 1.99, gfr 24 Performing Lab: Notes/Report: Test performed by [facility], [address] , [address], [place] [address] Adolfo Chu MD, [employer] Project Manager CLIA: [id number] Sodium 142 135-145 mmol/L Potassium 4.3 3.5-5.3 [...] 0.2 <0.2-1.2 mg/dL A/G Ratio 1.8 1.1-2.5 Mammogram Reviewed date:03/10/2024 04:42:49 PM Interpretation:Negative Performing Lab: Notes/Report: Negative result Negative P-Basic Metabolic Panel (BMP ) Reviewed date:08/06/2024 08:50:36 AM Interpretation:chol 111, co2- 17, gluc 106, bun 40, Cr 2.59, gfr 18 Performing Lab: Notes/Report: Test performed by [facility] [address] [place] [address] , [address], [place] [address] Adolfo Chu MD, [employer] Sigma Project Manager CLIA: [id number] Sodium 144 135-145 mmol/L Potassium 4.7 3.5-5.3 mmol/L Chloride 111 97-108 mmol/L CO2 17 22-32 mmol/L Glucose 106 65-99 mg/dL BUN 40 8-23 mg/dL Creatinine 2.59 0.50-1.00 mg/dL Calcium 9.5 8.6-10.4 mg/dL eGFR by Creatinine 18 >59 mL/min/1.73m2 EKG Reviewed date:08/06/2024 08:50:36 AM Interpretation: Performing Lab: Notes/Report: CBC Venipuncture (in house) Reviewed date:04/27/2024 09:27:18 AM Interpretation:Normal Performing Lab: Notes/Report: Normal wbc 8.8 3.5 - 10 lymph 21.8% 15 - 50 mid 5.7% 2 - 15 gran 72.5% 35 - 80 rbc 3.99 3.5 - 5.5 hgb 12.9 11.5 - 16.5 hct 37.9 35 - 55 mcv 95.0 75 - 100 mch 32.3 25 - 35 mchc 34.0 31 - 38 platlet 288 100 - 400 P-Vitamin B12 Reviewed date:04/27/2024 10:36:59 AM Interpretation:Normal Performing Lab: Notes/Report: Test performed by [facility] [address] [place] [address] , [place] [address] Adolfo Chu MD, [employer] Sigma Project Manager CLIA: [id number] Vitamin B12 316 252-4409 pg/mL P-Comprehensive Metabolic Pa adair (CMP) Reviewed date:04/27/2024 10:36:59 AM Interpretation:bun 29, Cr 1.8, Ca 11, gfr 27 Performing Lab: Notes/Report: Test performed by [facility] [address] [place] [address] , [address], [place] [address] Adolfo Chu MD, [employer] Project Manager CLIA: [id number] Sodium 143 135-145 mmol/L Potassium 4.5 3.5-5.3 mmol/L Chloride 105 97-108 mmol/L CO2 25 22-32 mmol/L Glucose 80 65-99 mg/dL BUN 29 8-23 mg/dL Creatinine 1.80 0.50-1.00 mg/dL Calcium 11.0 8.6-10.4 mg/dL eGFR by Creatinine 27 >59 mL/min/1.73m2 Protein 6.9 6.0-8.3 g/dL Albumin 4.4 3.5-5.3 g/dL Alkaline Phosphatase 43 35-121 IU/L ALT (SGPT) 22 <5-47 IU/L AST (SGOT) 23 <5-40 IU/L Bilirubin, Total 0.2 <0.2-1.2 mg/dL A/G Ratio 1.8 1.1-2.5 P-TSH Reviewed date:04/27/2024 10:36:59 AM Interpretation:Normal Performing Lab: Notes/Report: Test performed by [facility] [address] [place] [address] , [address], [place] [address] Adolfo Chu MD, [employer] Sigma Project Manager CLIA: [id number] TSH 2.25 0.43-5.25 mU/L Medications Medication SIG (Take, Route, Frequency, Duration) [...] Once a day; Duration: 30 day(s) Active Pravastatin Sodium 40 MG TAKE 1 TABLET B Y MOUTH ONCE DAILY Active Ezetimibe 10 MG 1 tab(s) orally once a day Active Donepezil HCl 10 MG 1 tab(s) [...] a day; Duration: 90 days 04/26/2024 Active Immunizations Vaccine Route Administration Date Status Comme nts COVID 19 Moderna Unknown 07/19/2020 Administered COVID 19 Moderna IM Intramuscular 08/16/2020 Administered COVID 19 Moderna Unknown 08/16/2020 Administered COVID 19 Moderna Unknown 04/25/2021 Administered Fluzone High Dose (65yr and older) IM Intramuscular 03/03/2013 Administered Fluzone High Dose (65yr and older) IM Intramuscular 03/24/2014 Administered Fluzone High Dose (65yr and older) IM Intramuscular 04/07/2015 Administered Fluzone High Dose (65yr and older) IM Intramuscular 03/28/2016 Administered Fluzone High Dose (65yr and older) IM Intramuscular 04/10/2017 Administered Fluzone High Dose (65yr and older) IM Intramuscular 03/13/2018 Administered Fluzone High Dose (65yr and older) IM Intramuscular 04/22/2019 Administered Fluzone High Dose (65yr and older) IM Intramuscular 03/03/2020 Administered Fluzone High Dose (65yr and older) IM Intramuscular 03/22/2021 Administered Fluzone High Dose (65yr and older) IM Intramuscular 03/11/2022 Administered Fluzone High Dose (65yr and older) IM Intramuscular 02/27/2023 Administered PNEUMOVAX 23 VACCINE IM Intramuscular 08/28/2016 Administe red Prevnar (PCV13) IM Intramuscular 05/10/2014 Administered Tetanus-DT IM Intramuscular 05/15/2006 Administered xAdministration of injection SC Subcutaneous 04/03/2007 Administered xFlu shot-36 months and older IM Intramuscular 05/08/2005 Administered xFlu shot-36 months and older IM Intramuscular 04/19/2006 Administered xFlu shot-36 months and older IM Intramuscular 03/31/2007 Administered xFlu shot-36 months and older IM 04/08/2008 Administered xFlu shot-36 months and older IM Intramuscular 02/06/2009 Administered xFlu shot-36 months and older IM Intramuscular 03/18/2011 Administered xFluzone (6mos and older)-trivalent IM Intramuscular 03/26/2010 Administered iNewdxgz-qazxpoavi-ljkpqgc e pts. IM Intramuscular 03/16/2012 Administered Problems Problem Type SNOMED Code ICD Code Onset Dates Problem Status W/U Status Risk Notes Problem Carotid artery occlusion without infarction (379624302966161) STENOSIS OF CAROTID ARTERY WITHOUT INFARCTION (433.10) Active confirmed Problem Anemia (355979563) Anemia NOS (285.9) Active co nfirmed Problem Essential hypertension (96422183) Essential hypertension (I10) Active confirmed Problem Paresthesia (98096983) Paresthesia (R20.2) Active confirmed Problem Body mass index 30+ - obesity (464807231) BMI 30.0-30.9,adult (Z68.30) Active confirmed Problem Memory loss (74257866) Memory loss (R41.3) Active confirmed Problem Restless legs (90573091) Restless legs (G25.81) Active confirmed Problem Pure hypercholesterolemia (538346954) Pure hypercholesterolemia (E78.0) Active confirmed Problem Reactive depression (situational) (13834818) Situational depression (F43.21) Active confirmed Problem Renal insufficiency (894018313) Renal insufficiency (N28.9) Active confirmed Problem Chronic fatigue syndrome (24666829) Chronic fatigue (R53.82) Active confirmed Problem Occlusion and stenosis of multiple and bilateral cerebral arteries (377737187) Stenosis of both carotid arteries without cerebral infarction (I65.23) Active confirmed Problem Lumbosacral spondylosis without myelopathy (18385195) Osteoarthritis of spine with radiculopathy, lumbar region (M47.26) Active confirmed Problem Cardiac dysrhythmia (078450645) Cardiac dysrhythmia, unspecified (I49.9) Active confirmed Problem Pure hypercholesterolemia (736887050) Pure hypercholesterolemia, unspecified (E78.00) Active confirmed Problem History of iron deficiency anemia (380750025) Hx of iron deficiency anemia (Z86.2) Active confirmed Problem Fibrocystic breast changes (48886540) Fibrocystic breast disease (FCBD), unspecified laterality (N60.19) Active confirmed Problem Tinnitus (31074827) Tinnitus, un specified laterality (H93.19) Active confirmed Problem Disorder of kidney and/or ureter (075380462) Nodule of kidney (N28.89) Active confirmed Problem Chronic kidney disease stage 3B (disorder) (612268535) Stage 3b chronic kidney disease (N18.32) Active confirmed Problem 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) Active confirmed Problem Dementia (76925945) Dementia in other diseases classified elsewhere, unspecified severity, without behavioral disturbance, psychotic disturbance, mood disturbance, and anxiety (F02.80) Active confirmed Problem Frontotemporal dementia (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) Active confirmed Vital Signs Heart Rate 59 /min 01/28/2025 Blood pressure diastolic 82 mm Hg 01/28/2025 Height 60 in 01/28/2025 Blood pressure systolic 140 mm Hg 01/28/2025 Weight 145.2 lbs 01/28/2025 BMI 28.35 kg/m2 01/28/2025 Encounters Encounter Location Date Provider [facility] [address] [id number] 02/16/2024 Destinee Iqbal Essential hypertensi on I10 ; Pure hypercholesterolemia E78.0 ; Renal insufficiency N28.9 ; Fibrocystic breast disease (FCBD), unspecified laterality N60.19 and Screening mammogram for breast cancer Z12.31 [facility] [address] [id number] 04/26/2024 Destinee Iqbal Essential hypertensi on I10 ; Restless legs G25.81 ; Memory loss R41.3 ; Renal insufficiency N28.9 and Pure hypercholesterolemia, unspecified E78.00 [facility] [address] [facility] [address], [place] [id number] 08/05/2024 Destinee Iqbal Essential hypertensi on I10 ; Stage 3b chronic kidney disease N18.32 ; Renal insufficiency N28.9 and Cardiac dysrhythmia, unspecified I49.9 [facility] [address] [facility] [address] [id number] 09/03/2024 Destinee Iqbal Stage 3b chronic kid irma disease N18.32 ; Dementia in other diseases classified elsewhere, unspecified severity, without behavioral disturbance, psychotic disturbance, mood disturbance, and anxiety F02.80 ; Memory loss R41.3 and Restless legs G25.81 [facility] [address] [place], [place] [id number] 11/04/2024 Destinee Iqbal Stage 3b chronic kid [...] hypercholesterolemia, unspecified E78.00 and BMI 30.0-30.9,adult Z68.30 [facility] [address] [place] [id number] 01/28/2025 Myranda Yancandido Unspecified fall, in itial encounter W19.XXXA and Unspecified place in unspecified non-institutional (private) residence as the place of occurrence of the external cause Y92.009 [facility] [address] [place], [place] [id number] 10/04/2024 Destinee Iqbal Pain of lower extrem ity, unspecified laterality M79.606 ; Restless legs G25.81 ; Renal insufficiency N28.9 ; Memory loss R41.3 ; Chronic fatigue R53.82 ; Other frontotemporal neurocognitive disorder G31.09 ; Pure hypercholesterolemia, unspecified E78.00 and BMI 29.0-29.9,adult Z68.29 [facility] [address] [place], [place] [id number] 04/27/2024 [facility]bal [facility] [address] [place], [place] [id number] 04/29/2024 Destinee Iqbal Knee pain, left M25. 562 [facility] [address] [place] [id number] 08/06/2024 Destinee Iqbal [facility] [place] [facility] [address] [place], [place] [id number] 08/12/2024 Destinee Iqbal Essential hypertensi on I10 [facility] [address] [place] [facility] [address] [place], [place] [id number] 09/23/2024 Destinee Iqbal Memory loss R41.3 an d Pure hypercholesterolemia, unspecified E78.00 [facility] [address] [place] [facility] [address] [place], [place] [id number] 11/14/2024 Destinee Iqbal Osteopenia M85.80 an d Screening for osteoporosis Z13.820 [facility] [facility] [address] [place] [id number] 01/07/2025 Destinee Iqbal Assessments Encounter Date Diagnosis (ICD Code) Assessment Notes Treatment Notes Treatment Clinical Notes Section Notes 02/16/2024 Essential hypertensi on (ICD-10 - I10) 02/16/2024 Pure hypercholesterolemia (ICD-10 - E78.0) 04/26/2024 Essential hypertensi on (ICD-10 - I10) 04/26/2024 Restless legs (ICD-1 0 - G25.81) 04/29/2024 Knee pain, left (ICD -10 - M25.562) 08/05/2024 Essential hypertensi on (ICD-10 - I10) 08/05/2024 Stage 3b chronic kid irma disease (ICD-10 - N18.32) 08/12/2024 Essential hypertensi on (ICD-10 - I10) 09/03/2024 Stage 3b chronic kid irma disease (ICD-10 - N18.32) We will reschedule the patient for Nephrology follow-up. Calls were made today. 09/03/2024 Dementia in other diseases classified elsewhere, unspecified severity, without behavioral disturbance, psychotic disturbance, mood disturbance, and anxiety (ICD-10 - F02.80) 09/23/2024 Memory loss (ICD-10 - R41.3) 10/04/2024 Restless legs (ICD-1 0 - G25.81) 10/04/2024 Pain of lower extrem ity, unspecified laterality (ICD-10 - M79.606) 11/14/2024 Osteopenia (ICD-10 - M85.80) 11/14/2024 Screening for osteoporosis (ICD-10 - Z13.820) 01/28/2025 Unspecified fall, initial encounter (ICD-10 - W19.XXXA) 01/28/[address] in unspecified non-institutional (private) residence as the place of occurrence of the external cause (ICD-10 - Y92.009) 11/04/2024 Stage 3b chronic kid irma disease (ICD-10 - N18.32) 11/04/2024 Dementia in other diseases classified elsewhere, unspecified severity, without behavioral disturbance, psychotic disturbance, mood disturbance, and anxiety (ICD-10 - F02.80) 10/04/2024 Renal insufficiency (ICD-10 - N28.9) 09/23/2024 Pure hypercholesterolemia, unspecified (ICD-10 - E78.00) 09/03/2024 Memory loss (ICD-10 - R41.3) 08/05/2024 Renal insufficiency (ICD-10 - N28.9) 04/26/2024 Memory loss (ICD-10 - R41.3) 02/16/2024 Renal insufficiency (ICD-10 - N28.9) 02/16/2024 Fibrocystic breast disease (FCBD), unspecified laterality (ICD-10 - N60.19) 04/26/2024 Renal insufficiency (ICD-10 - N28.9) 08/05/2024 Cardiac dysrhythmia, unspecified (ICD-10 - I49.9) 09/03/2024 Restless legs (ICD-1 0 - G25.81) 10/04/2024 Memory loss (ICD-10 - R41.3) 11/04/2024 Chronic fatigue (ICD -10 - R53.82) 11/04/2024 Hx of iron deficienc y anemia (ICD-10 - Z86.2) 10/04/2024 Chronic fatigue (ICD -10 - R53.82) 04/26/2024 Pure hypercholesterolemia, unspecified (ICD-10 - E78.00) 02/16/2024 Screening mammogram for breast cancer (ICD-10 - Z12.31) 10/04/2024 Other frontotemporal neurocognitive disorder (ICD-10 - G31.09) 11/04/2024 Pain of lower extrem ity, unspecified laterality (ICD-10 - M79.606) 11/04/2024 Essential hypertensi on (ICD-10 - I10) 10/04/2024 Pure hypercholesterolemia, unspecified (ICD-10 - E78.00) 10/04/2024 BMI 29.0-29.9,adult (ICD-10 - Z68.29) 11/04/2024 Memory loss (ICD-10 - R41.3) 11/04/2024 Pure hypercholesterolemia, unspecified (ICD-10 - E78.00) 11/04/2024 BMI 30.0-30.9,adult (ICD-10 - Z68.30) Plan Of Treatment Pending Test Test Name Order Date Bone density 11/14/2024 X ray : Hip and LS spine, left Next Appt Details Provider Name:Myranda Gonzalez , 01/28/2025 02:00:00 PM, [address] [facility] [address] [facility], [address], [place], [place], [id number], Provider Name:Destinee Green er, 03/07/2025 01:00:00 PM, [address] [facility] [address] [facility], [address], [place], [place], [id number], Insurance Providers Payer Name Payer Address Payer Phone Subscriber Number Group Number Insured Name Patient Relationship to Insured Coverage Start Date Coverage End Date MEDICARE PART B [address] [address] [place] [id number] [phone] [id number] GERALDO EARLY Self - patient is the insured [facility] [address] [place] [address] [phone] [id number] GERALDO EARLY Self - patient is the insured Medical (General) History Medical History History ICD Code hyperlipidemia HCM pelvic relaxation post hx DUB/hysterectomy Hypertension Normal colonoscopy 10/03/05 Dr. Fregoso Tinnitus Colonoscopy 04/18/14 with adenomas, Dr. Rowan Covid vaccine x2 (August 2020) Moderna Surgical History Surgery Date(Month/Year) BTL hysterectomy bilateral cataracts biopsy right breast (calcium deposit) Hospitalization History Reason Date(Month/Year) broken ribs
--- OUTSIDE RECORDS SUMMARY | 2025-01-28 14:54 | XMS_ITS | Patient Health Record ---
Author Organization [facility] Address [address] [facility] [address] [place] [address] Care Team Providers Care Back Up Scan Coordinator Name Role Phone Winifred Bacon Unavailable [phone] Reason For Referral No Information Social History Social History Sexual History: Social Info Question Answer Notes Sexual History Had sex in the past 12 months (vaginal, oral, or anal)? Yes Drugs/Alcohol: Social Info Question Answer Notes Drugs Have you used drugs other than those for medical reasons in the past 12 months? No Alcohol Screen Did you have a drink containing alcohol in the past year? Yes Points 0 Interpretation Negative Tobacco Use: Social Info Question Answer Notes Tobacco Use/Smoking Are you a former smoker Tobacco use other than smoking: Are you an other tobac co user? No Problems Problem Type SNOMED Code ICD Code Onset Dates Problem Status W/U Status Risk Notes Problem Atrophic vaginitis (57890298) Atrophic vaginitis (N95.2) 11/16/19 Active confirmed Vaginal atrophy Problem Hormone replacement therapy (350074732) Counseling for estrogen replacement therapy (Z79.890) 11/16/19 Active confirmed Hormone replacement therapy Problem Menopause (887328529) *Menopausal and female climacteric states (Code also, associated symptoms) (N95.1) 11/16/19 20 Active confirmed Menopausal and female climacteric states Plan Of Treatment No Information Medical (General) History Medical History History ICD Code HTN UTI ESTROGEL 0.75 MG/1.25 GM (0.06%) TRANSDE RMAL GEL, TRANS Surgical History Surgery Date(Month/Year) None listed
--- OUTSIDE RECORDS SUMMARY | 2025-01-28 14:54 | XMS_ITS | Clinical Summary ---
Author Organization [facility] Address [address] [place] [address] Care Team Providers Care Health Information Technologist Name Role Phone Dwain Iqbal MD Primary Care Provider [phone] Family History Medical History Relation Name Comments Breast cancer Neg Hx Endometrial cancer Neg Hx Ovarian cancer Neg Hx Social History Tobacco Use Types Packs/Day Years Used Date Smoking Tobacco: Never Assessed Abuse Screen Answer Date Recorded Unsafe at Home or Work/School Not on file Feels Threatened by Someone? Not on file 02/2023 Does Anyone Keep You from Co ntacting Others or Doint Things Outside the Home? Not on file 03/17/2023 Physical Sign of Abuse Present Not on file 1 Housing Stability Answer Date Recorded Current Living Arrangements Not on file 02/2023 Potentially Unsafe Housing Conditions Not on bridget e 03/17/2023 Family and Community Support Answer Crispin e Recorded Help with Day-to-Day Activities Not on file 03/17/2023 Lonely or Isolated Not on file 03/17/2023 Employment Answer Date Recorded Do you want help finding or keeping work or a alecia b? Not on file 03/17/2023 Disabilities Answer Date Recorded Concentrating, Remembering, or Making Decisions Difficulty Not on file 03/17/2023 Doing Errands Independently Difficulty Not on fi le 03/17/2023 Education Answer Date Recorded Help with school or training? Not on file Preferred Language Not on file 03/17/2023 Comments No Sex and Gender Information Value Date Recorded Sex Assigned at Not on file Legal Sex Female 10:10 AM EDT Gender Identity Not on file Sexual Orientation Not on file Plan of Treatment Health Maintenance Due Date Last Done Comments ANNUAL PHYSICAL 1940 TDAP/TD VACCINES (1 - Tdap) 1958 Pneumococcal Vaccine 50+ (1 of 1 - PCV) 1989 ZOSTER VACCINE (1 of 2) 1989 RSV Vaccine - Adults (1 - 1- dose 75+ series) 2014 DXA SCAN 06/21/2016 06/21/2014 COVID-19 Vaccine (1 - 2023- season) 2024 INFLUENZA VACCINE 03/09/2025 04/22/2019, , 04/10/2017 Procedures Procedure Name Priority Date/Time Associated Diagnosis Comments DEXA BONE DENSITY AXIAL Routine 06/21/2014 12:49 PM EST from Last 3 Months or Most Recently Relevant to Health Maintenance Results * DEXA BONE DENSITY AXIAL (06/21/2014 12:49 PM EST) Anatomical Region Laterality Modality Wrist, Hip, L-spine N/A Radiographic Imaging 06/21/2014 12:4 9 PM EST Narrative 06/21/2014 2:05 PM EST DUAL-ENERGY X-RAY ABSORPTIOMETRY (DXA) INDICATION: 74-year-old female patient currently being treated for osteoporosis. COMPARISON: 05/25/2013 and 12/27/1999 PROCEDURE: A DXA scan was performed using a Lateral SV densitometer. The lumbar spine was evaluated as well as the left total hip. The T-score compares the patient's bone mineral density with the peak bone mass of young normal patients. According to criteria established by the World Health Organization, patients with T-scores between 1.0 and 2.5 standard deviations BELOW the mean are osteopenic (low bone mass). Patients with T-scores EQUAL TO OR GREATER than 2.5 standard deviations below the mean are osteoporotic. The Z-score compares the patient bone mineral density with age and sex matched peers. According to the International Society for Clinical Densitometry's 2007 consensus conference: In women prior to menopause and men less than age 50, Z-scores, not T-scores are preferred. A Z-score of -2.0 or lower is defined as below the expected range for age and a Z-score above -2.0 is within the expected range for age. The WHO diagnostic criteria may be applied in women in the menopausal transition. Osteoporosis cannot be diagnosed in men under age 50 on the basis of BMD alone. TECHNICAL QUALITY: The study appears to be of good technical quality. RESULTS: Lumbar Spine: The BMD measured in the L1-L4 region is 1.502 g/cm2. The average T-score is 2.7. The Z-score is 4.3. Total Hip: The BMD measured at the left total proximal femur is 1.024 g/cm2. The T-score is 0.1. The Z-score is 1.7. Femoral Neck: The BMD measured at the left femoral neck is 0.870 g/cm2. The T-score is -1.2. The Z-score is 0.6. IMPRESSION- Osteopenia based upon an average T score of -1.2 in the left femoral neck. All the treatment decisions require clinical judgment and consideration of individual patient factors, including patient preferences, co-morbidities, previous drug use, risk factors not captured in the FRAX model (frailty, falls, vitamin D deficiency, increased bone turnover, interval significant decline in bone density) and possible under or over estimation of fracture risk by FRAX. Approaches to reduce osteoporosis related fracture risk include optimizing calcium and vitamin D status, appropriate weight bearing exercises and fall-prevention measurements. The National Osteoporosis Foundation recommends (http://www.nof.org/hcp/practice/cgcppdpk-ztx-qjmsdufw-guidelines/clinic ans-guide) that FDA-approved medical therapies be considered in postmenopausal women and men aged equal or greater than 50 years with : a) hip or vertebral (clinical or morphometric) fracture; b) T-score of -2.5 or less at the spine or hip; c) Ten-year fracture probability by FRAX of greater than 3% for hip fracture of greater than 20% for major osteoporotic fracture. Secondary causes of bone loss should be evaluated if clinically indicated since the etiology of low BMD cannot be determined by BMD measurement alone. FOLLOWUP: Consider repeating the study in 2-3 years to reassess the patient's status or sooner if there is some new clinical indication. INTERVAL CHANGE: There has been a statistically significant increase in the bone mineral density of the lumbar spine by 28.4% and an increase in the proximal left femur by 8.8% compared to the exam from 2000. No other statistically significant change is noted. At this facility, the least significant change in the BMD with 95% confidence is 0.012 gm/cm2 at the hip and 0.010 g/cm2 at the lumbar spine. Reading Radiologist- CHLOE JOHNSONS Releasing Radiologist- CHLOE MASTERS Released Date Time- 06/21/14 1410 Independent Marketing ConsultantGus Sequeira Ernesto Bender MD IMG DXA ORDERABLES Final Result from Last 3 Months or Most Recently Relevant to Health Maintenance Insurance MEDICARE A & B Member Subscriber Plan / Payer (Ef fective 2004-Present) Name:Maia Perkins Member ID:[id number] Relation to Subscriber:Self Name:Maia Perkins Subscriber ID:[id number] Payer ID:[id number] Group ID:Not on file Type:Not on file Address: [facility] [id number] [employer] Care Teams Health Information Technologist Relationship Specialty Start Date End Date Dwain Iqbal MD [address] [facility] [address] [place] [address] PCP - General Family Medicine 02/21/16
--- OUTSIDE RECORDS SUMMARY | 2025-01-28 14:54 | XMS_ITS | Clinical Summary ---
Author Organization Healthcare Address [address] [place] [address] Care Team Providers Care Chief Engineer'S Helper Name Role Phone Dwain Iqbal MD Primary Care Provider [phone] Allergies Active Allergy Reactions Criticality Noted Date Comments Penicillins Unknown - Patient st ates they do not know rxn details Low 03/13/2022 Medications donepezil (Aricept) 10 MG tablet Take 1 tablet (10 mg) by mouth every night. Active rOPINIRole (Requip) 1 MG tablet Take 1 tablet (1 mg) by mouth 4 (four) times a day. Active metoprolol succinate XL (Toprol-XL) 50 MG 24 hr tablet Take 1 tablet (50 mg) by mouth 1 (one) time each day. Do not crush or chew. Active gabapentin (Neurontin) 100 MG capsule Take 1 capsule (100 mg) by mouth 2 (two) times a day. 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 chronic kidney disease 2023 Hypertensive chronic kidney disease with stage 1 through stage 4 chronic kidney disease, or unspecified chronic kidney disease 05/14/2024 Essential hypertension 03/14/2022 Chronic kidney disease-mineral and bone disorder (CKD-MBD) 03/14/2022 Encounters Date Type Department Care Team Description 11/12/2024 9:40 AM EDT Office Visit [facility] [address] [place] [id number] Freedom Maradiaga MD CKD stage 3b, GFR 30-44 ml/min ([facility]) (Primary Dx); Chronic kidney disease-mineral and bone disorder (CKD-MBD); Anemia in stage 3b chronic kidney disease; Hypertensive chronic kidney disease with stage 1 through stage 4 chronic kidney disease, or unspecified chronic kidney disease; Stage 3b chronic kidney disease ([facility]) 11/12/2024 Travel from Last 3 Months Immunizations Immunization Administration Dates Next Due Influenza, High-dose, Split Virus, Trivalent, Injectable, preservative free 03/03/2020,04/22/2019,03/13/2018,2016 Influenza, high-dose, quadrivalent 03/11/2022, Family History Medical History Relation Name Comments Heart disease Father Hyperlipidemia Father Hypertension Father Heart disease Mother Hyperlipidemia Mother Hypertension Mother Relation Name Status Comments Father Mother Social History Tobacco Use Types Packs/Day Years Used Date Smoking Tobacco: Never Smokeless Tobacco: Never Tobacco Cessation:Counseling Given: Not Answered Alcohol Use Standard Drinks/Week Comments Never 0 (1 standard drink = 0.6 oz pur e alcohol) Comments No Sex and Gender Information Value Date Recorded Sex Assigned at Not on file Legal Sex Female 6:46 PM EDT Gender Identity Not on file Sexual Orientation Not on file Last Filed Vital Signs Vital Sign Reading Time Taken Comments Blood Pressure 124/65 11/12/2024 9:01 AM EDT Pulse 61 11/12/2024 9:01 AM EDT Temperature 36.3 C (97.3 F) 05/14/2024 10:36 AM EST Respiratory Rate 16 11/12/2024 9:01 AM EDT Oxygen Saturation 99% 11/12/2024 9:01 AM EDT Inhaled Oxygen Concentration - - Weight 68 kg (150 lb) 11/12/2024 9:01 AM EDT Height 157.5 cm (5' 2 ) 11/12/2024 9:01 AM EDT Body Mass Index 27.44 11/12/2024 9:01 AM EDT Plan of Treatment Health Maintenance Due Date Last Done Comments [facility]Depression Screening 1940 [facility]Medicare Annual Wellness (AWV) 1940 [facility]-/Child/Adol SDOH Screenings 1940 [facility]- SDOH Screenings 1957 [facility]-Adult SDOH Screenings 1957 [facility]-Zoster Vaccines (2 of 3) 05/29/2007 04/03/2007 [facility]-RSV Vaccine: 60+ Years or (1 - 1-dose 75+ series) 2014 [facility]-DTaP,Tdap,and Td Vaccines (2 - Tdap) 05/15/2016 05/15/2006 [facility]-Bone Density Scan 06/21/2016 06/21/2014 [id number] Vaccine ( season) 2024 03/06/2022, 04/25/2021, 08/16/2020, Additional history exists [facility]-Influenza Vaccine (#1) 02/07/202503/11, 03/22/2021, 03/03/2020, Additional history exists [facility]-Pneumococcal Vaccine: 50+ Years Completed 08/28/2016, 05/10/2014 [facility]-Obesity Intervention Completed 025, 05/14/2024, 08/18/2023, Additional history exists HPV Vaccines Aged Out No longer eligi ble based on patient's age to complete this topic [facility]-HIB Vaccines Aged Out No longer e ligible based on patient's age to complete this topic [facility]-Hepatitis A Vaccines Aged Out No longer eligible based on patient's age to complete this topic [facility]-IPV Vaccines Aged Out No longer e ligible based on patient's age to complete this topic [facility]-Rotavirus Vaccines Aged Out No lo nger eligible based on patient's age to complete this topic Insurance [facility] [place] [address] Care Teams Chief Engineer'S Helper Relationship Specialty Start Date End Date Dwain Iqbal MD [address] [place] [address] [place] [address] PCP - General 03/14/22
--- NOTE | 2025-01-28 14:58 | XR_ITS ---
PROCEDURE INFORMATION: Exam: XR Left Hip Exam date and time: 01/28/2025 3:12 PM Age: 84 years old Clinical indication: Injury or trauma; Fall; Blunt trauma (contusions or hematomas); Left; Pelvic region; Additional info: Fall today TECHNIQUE: Imaging protocol: Radiologic exam of the left hip. Views: 2 or 3 views hip with pelvis when performed. COMPARISON: CT ABDOMEN PELVIS WO CON 01/21/2019 1:54 PM FINDINGS: Bones/joints: No acute fracture or dislocation. Osteoarthritis of the hips, [id number]. Degenerative change of the spine. Osteopenia. Soft tissues: Unremarkable. Other findings: Pelvic postoperative material. IMPRESSION: 1. No acute fracture or dislocation. 2. Osteoarthritis of the hips, [id number]-right. 3. Degenerative change of the spine.
--- NOTE | 2025-01-28 14:58 | XR_ITS ---
PROCEDURE INFORMATION: Exam: XR Lumbosacral Spine Exam date and time: 01/28/2025 3:12 PM Age: 84 years old Clinical indication: Low back pain; Additional info: Fall today, left sided back pain TECHNIQUE: Imaging protocol: Radiologic exam of the lumbosacral spine. Views: 2 or 3 views. COMPARISON: CT ABDOMEN PELVIS WO CON 01/21/2019 1:54 PM FINDINGS: Bones/joints: Five lumbar type vertebral bodies. No acute fracture or dislocation. Multilevel degenerative change of the spine. Dextrocurvature of the upper lumbar spine and levocurvature of the lower lumbar spine. Osteopenia. Soft tissues: Unremarkable. Vasculature: Atherosclerosis. Other findings: Pelvic postoperative material. IMPRESSION: 1. No acute fracture or dislocation. 2. Multilevel degenerative change of the spine. 3. Dextrocurvature of the upper lumbar spine and levocurvature of the lower lumbar spine. 4. Osteopenia. 5. Atherosclerosis.
== END 2025-01-28 23:59 | disposition home or self-care (01) ==
LOC: RAD 14:52
PROVIDERS: PCP Physician Assistant; Visit Provider Physician Assistant
DX: M47.816 Spondylosis without myelopathy or radiculopathy, lumbar region (principal); M43.8X6 Other specified deforming dorsopathies, lumbar region; M85.88 Other specified disorders of bone density and structure, other site; I70.90 Unspecified atherosclerosis; M16.12 Unilateral primary osteoarthritis, left hip; W19.XXXA Unspecified fall, initial encounter
CPT/HCPCS: 72100; 73502

== ENCOUNTER 2025-02-11 08:32 | Outpatient (CLI) | payer MEDICARE, SELFPAY ==
--- OUTSIDE RECORDS SUMMARY | 2024-09-03 07:45 | XMS_ITS ---
[facility] Organization [facility] Address [address] [facility] [address] [place] [id number] Care Team Providers Care Scientific Affairs Manager Name Role Phone Destinee Iqbal Primary Care Provider [phone] Allergies Allergen (clinical drug ingredient) Drug/Non Drug Allergy documented on EMR Reaction Allergy Type Onset Date Status Penicillin Unknown Drug Allergy Active REASON FOR VISIT 4 week f/u Medications Medication SIG (Take, Route, Frequency, Duration) Notes Start Date End Date Status rOPINIRole HCl 1 MG take 1 tablet by mouth every morning , 1 tab in afternoon and 2 tablets at bedtime as directed orally as directed; Duration: 90 days Active Lisinopril 10 MG 1 tablet Orally Once a day; Duration: 90 days Active Pravastatin Sodium 40 MG TAKE 1 TABLET B Y MOUTH ONCE DAILY; Duration: 90 Active hydroCHLOROthiazide 12.5 MG 1 cap(s) ora lly every other day; Duration: 90 days Active Metoprolol Succinate ER 50 MG 1 tab(s) o rally once a day; Duration: 90 days Active Ferrous Sulfate 325 (65 Fe) MG 1 tab(s) orally 2 times a day 03/03/2014 Active Donepezil HCl 10 MG 1 tab(s) orally once a day (at bedtime) Active Memantine HCl ER 14 MG 1 capsule Orally Once a day; Duration: 30 day(s) 04/26/2024 Active Ezetimibe 10 MG 1 tab(s) orally once a day; Duration: 90 days Active Gabapentin 100 MG 2 cap(s) orally 2 times a day; Duration: 30 day(s) 04/30/2024 Active Multivitamin - 1 tablet Orally Once a day; Duration: 30 day(s) Active Aspirin 81 MG 1 tab(s) orally once a day; Duration: 30 day(s) Active Vital Signs Blood pressure systolic 144 mm Hg 09/04/19 25 Blood pressure diastolic 80 mm Hg 025 Heart Rate 52 /min 09/03/2024 Height 60 in 09/03/2024 Weight 151.0 lbs 09/03/2024 BMI 29.49 kg/m2 09/03/2024 Encounters Encounter Location Date Provider Diagnosis [facility] [address] [facility] [address] [place] [id number] 09/03/2024 Destinee Iqbal Stage 3b chronic kidney disease N18.32 ; Dementia in other diseases classified elsewhere, unspecified severity, without behavioral disturbance, psychotic disturbance, mood disturbance, and anxiety F02.80 ; Memory loss R41.3 and Restless legs G25.81 Assessments Encounter Date Diagnosis (ICD Code) Assessment Notes Treatment Notes Treatment Clinical Notes Section Notes 09/03/2024 Stage 3b chronic kidney disease (ICD-10 - N18.32) We will reschedule the patient for Nephrology follow-up. Calls were made today. 09/03/2024 Dementia in other diseases classified elsewhere, unspecified severity, without behavioral disturbance, psychotic disturbance, mood disturbance, and anxiety (ICD-10 - F02.80) 09/03/2024 Memory loss (ICD-10 - R41.3) 09/03/2024 Restless legs (ICD-10 - G25.81) Plan Of Treatment Treatment Notes Assessment Notes Stage 3b chronic kidney disease We will reschedule the patient for Nephrology follow-up. Calls were made today. Next Appt Details Follow Up: 4 Weeks, Reason: Provider Name:Destinee Green er, 02/28/2025 02:30:00 PM, [address] [facility] [address], [address], [place], [id number], Progress Notes * GERALDO EARLYDOB:1940 (84 yo F)Acc No.[id number]:09/03/2024 Progress Notes Patient: XOCHITL LYONSTA Provider: Destinee Iqbal M.D. :1940 A ge:84 Y S ex:Female Date:09/03/2024 Address:[address] [place], [place] [address] K [id number] Subjective: * Chief Complaints: * 1 . 4 week f/u. * HPI: C ardiology: The patient is here for a follow up on Renal insufficiency. Pt states she is doing good and denies any new concerns. Pt is still having pain with walking. See 08/06/24 note. Lab was forwarded to [facility] (GFR=18) and she reportedly had appt 09/02/24. She has no awareness of the appt. Denies : Chest Pain. D enies : Short of Breath. D enies : Dizziness. D enies : Palpitations. * ROS: D ERMATOLOGY: no R semaj. n o H alcon. G ASTROENTEROLOGY: no N ausea. n o V omiting. n o D iarrhea.? U ROLOGY: no D ifficulty urinating. n o B lood in urine. * Medical History: H yperlipidemia, HCM, Pelvic relaxation, post hx DUB/hysterectomy, Hypertension, Normal colonoscopy 10/03/05 Dr. Fregoso, Tinnitus, Colonoscopy 04/18/14 with adenomas, Dr. Rowan, Covid vaccine x2 (August 2020) Moderna. * Surgical History: B TL , hysterectomy , bilateral cataracts , biopsy right breast (calcium deposit) . * Hospitalization/Major Diagno stic Procedure: b roken ribs . * Family History: F ather: . M other: . P aternal Grand Father: . P aternal Grand Mother: . M aternal Grand Father: . M aternal Grand Mother: .?2 son(s) , 1 daughter(s) . . * Social History: C URRENT TOBACCO USE S moking Status: Patient does NOT smoke. C affeine: yes, frequency:. Marital Status: Single. Past smoking status: no. Alcohol: Type: , Frequency: ,Years: , Determination:. * Medications: T aking Multivitamin - Tablet 1 tablet Orally Once a day , Taking Aspirin 81 MG Tablet Delayed Release 1 tab(s) orally once a day , Taking Ferrous Sulfate 325 (65 Fe) MG Tablet 1 tab(s) orally 2 times a day , Taking Donepezil HCl 10 MG Tablet 1 tab(s) orally once a day (at bedtime) , Taking Memantine HCl ER 14 MG Capsule Extended Release 24 Hour 1 capsule Orally Once a day , Taking Ezetimibe 10 MG Tablet 1 tab(s) orally once a day , Taking Gabapentin 100 MG Capsule 2 cap(s) orally 2 times a day , Taking Metoprolol Succinate ER 50 MG Tablet Extended Release 24 Hour 1 tab(s) orally once a day , Taking Pravastatin Sodium 40 MG Tablet TAKE 1 TABLET BY MOUTH ONCE DAILY , Taking hydroCHLOROthiazide 12.5 MG Capsule 1 cap(s) orally every other day , Taking Lisinopril 10 MG Tablet 1 tablet Orally Once a day , Taking rOPINIRole HCl 1 MG Tablet take 1 tablet by mouth every morning , 1 tab in afternoon and 2 tablets at bedtime as directed orally as directed , Medication List reviewed and reconciled with the patient * Allergies: P enicillin. Objective: * Vitals: W t:151.0, Temp:97.3, BP:144/80, HR:52, O2 Sat:98% on RA, Nurse:MIREYA, Ht: 60, BMI:29.49. * Examination: G eneral Examination: General Appearance: N AD. H EENT: e yes puffy. Appears pale. O ral cavity: n o lesions, mucosa moist and WNL, no erythema. N chito: ?supple, no lymphadenopathy. C hest: n ormal shape and expansion. H eart: i rregular rhythm, bradycardia, can be bigeminal rhythm. L ungs: c lear to auscultation. A bdomen: soft and nontender. N eurologic Exam: I ntact, gait normal. S kin: n ormal, no rash. P eripheral pulses: n ormal . B ack: mild dorsal kyphosis. E xtremities: M inimal leg edema. Assessment: * Assessment: 1. S tage 3b chronic kidney disease - N18.32 (Primary) 2 . D ementia in other diseases classified elsewhere, unspecified severity, without behavioral disturbance, psychotic disturbance, mood disturbance, and anxiety - F02.80 3 . M lynda loss - R41.3 & #160; 4 . R estless legs - G25.81 Plan: * Treatment: * Procedure Codes: G 2211 Complex e/m visit add on, 3077F SYST BP = 140 MM HG6 IT, 3079F DIAST BP 80- 89 MM HG * Follow Up: 4 Weeks * Images: Billing Information: * Visit Code: 28558 Office Visit, Est Pt., Level 3. * Procedure Codes: G2211 Complex e/m visit add on. 3077F SYST BP = 140 MM HG6 IT. 3079F DIAST BP 80-89 MM HG. * Electronic signature of Destinee Iqbal MD on 02/11/2025 at 08:45 AM EDT Sign off status: Pending * Provider: Destinee Iqbal M.D. Date: 0 09/03/2024 Generated for Anikai ng/Desirae/eTransmitting on: 0 02/11/2025 08:45 AM EDT History and Physical Notes * HPI (History of Present Illness) Category Sub-Category Detail Notes Category Not es Cardiology Short of Breath Chest Pain Palpitations Dizziness Examination Category Sub-Category Detail Notes Category Not es General Examination HEENT: eyes puffy. Appears p floridalma Heart: irregular rhythm, br adycardia, can be bigeminal rhythm Lungs: clear to auscultatio n Abdomen: soft and nontender Extremities: Minimal leg edema General Appearance: NAD Skin: normal, no rash Neurologic Exam: Intact, gait normal Neck: supple, no lymphaden opathy Oral cavity: no lesions, mucosa m oist and WNL, no erythema Peripheral pulses: normal Back: mild dorsal kyphosis Chest: normal shape and exp ansion
--- OUTSIDE RECORDS SUMMARY | 2024-11-04 09:30 | XMS_ITS ---
Author Organization [facility] Address [address] [facility] [address] [place] [phone] Care Team Providers Care Lead Military Analyst Name Role Phone Destinee Iqbal Primary Care Provider [phone] Allergies Allergen (clinical drug ingredient) Drug/Non Drug Allergy documented on EMR Reaction Allergy Type Onset Date Status Penicillin Unknown Drug Allergy Active Results Component Value Reference Range Notes P-Comprehensive Metabolic Pa adair (CMP) Reviewed date:01/07/2025 09:35:01 AM Interpretation:gluc 108, bun 34, Cr 1.99, gfr 24 Performing Lab: Notes/Report: Test performed by [facility], [address] , [address], [place] [address] Adolfo Chu MD, Permanent Mold Supervisor CLIA: [id number] Sodium 142 135-145 mmol/L Potassium 4.3 3.5-5.3 mmol/L Chloride 104 97-108 mmol/L CO2 24 22-32 mmol/L Glucose 108 65-99 mg/dL BUN 34 8-23 mg/dL Creatinine 1.99 0.50-1.00 mg/dL Calcium 9.8 8.6-10.4 mg/dL eGFR by Creatinine 24 >59 mL/min/1.73m2 Protein 6.4 6.0-8.3 g/dL Albumin 4.1 3.5-5.3 g/dL Alkaline Phosphatase 44 35-121 IU/L ALT (SGPT) 14 <5-47 IU/L AST (SGOT) 18 <5-40 IU/L Bilirubin, Total 0.2 <0.2-1.2 mg/dL A/G Ratio 1.8 1.1-2.5 REASON FOR VISIT 4 week f/u Medications Medication SIG (Take, Route, Frequency, Duration) Notes Start Date End Date Status Memantine HCl ER 14 MG 1 capsule Orally Once a day; Duration: 90 days 04/26/2024 Active Metoprolol Succinate ER 50 MG 1 tab(s) o rally once a day; Duration: 90 days Active Gabapentin 100 MG 2 cap(s) orally 2 times a day; Duration: 30 day(s) 11/04/2024 Active Donepezil HCl 10 MG 1 tab(s) orally once a day (at bedtime) Active rOPINIRole HCl 1 MG take 1 tablet by mouth every morning , 1 tab in afternoon and 2 tablets at bedtime as directed orally as directed; Duration: 90 days Active Ezetimibe 10 MG 1 tab(s) orally once a day Active Aspirin 81 MG 1 tab(s) orally once a day; Duration: 30 day(s) Active Ferrous Sulfate 325 (65 Fe) MG 1 tab(s) orally 2 times a day 03/03/2014 Active hydroCHLOROthiazide 12.5 MG 1 cap(s) ora lly every other day; Duration: 90 days Active Lisinopril 10 MG 1 tablet Orally Once a day; Duration: 90 days Active Pravastatin Sodium 40 MG TAKE 1 TABLET B Y MOUTH ONCE DAILY Active Multivitamin - 1 tablet Orally Once a day; Duration: 30 day(s) Active Problems Problem Type SNOMED Code ICD Code Onset Dates Problem Status W/U Status Risk Notes Problem Body mass index 30+ - obesity (056573247) BMI 30.0-30.9,a dult (Z68.30) Active confirmed Vital Signs Blood pressure systolic 160 mm Hg 11/05/19 25 Blood pressure diastolic 72 mm Hg 025 Heart Rate 62 /min 11/04/2024 Height 60 in 11/04/2024 Weight 154.0 lbs 11/04/2024 BMI 30.07 kg/m2 11/04/2024 Encounters Encounter Location Date Provider Diagnosis [facility] [address] [facility] [address] [place], [place] [phone] 11/04/2024 Destinee Iqbal Stage 3b chronic kid irma disease N18.32 ; Dementia in other diseases classified elsewhere, unspecified severity, without behavioral disturbance, psychotic disturbance, mood disturbance, and anxiety F02.80 ; Chronic fatigue R53.82 ; Hx of iron deficiency anemia Z86.2 ; Pain of lower extremity, unspecified laterality M79.606 ; Essential hypertension I10 ; Memory loss R41.3 ; Pure hypercholesterolemia, unspecified E78.00 and BMI 30.0-30.9,adult Z68.30 Assessments Encounter Date Diagnosis (ICD Code) Assessment Notes Treatment Notes Treatment Clinical Notes Section Notes 11/04/2024 Stage 3b chronic kidney disease (ICD-10 - N18.32) 11/04/2024 Dementia in other diseases classified elsewhere, unspecified severity, without behavioral disturbance, psychotic disturbance, mood disturbance, and anxiety (ICD-10 - F02.80) 11/04/2024 Chronic fatigue (ICD-10 - R53.82) 11/04/2024 Hx of iron deficiency anemia (ICD-10 - Z86.2) 11/04/2024 Pain of lower extremity, unspecified laterality (ICD-10 - M79.606) 11/04/2024 Essential hypertension (ICD-10 - I10) 11/04/2024 Memory loss (ICD-10 - R41.3) 11/04/2024 Pure hypercholesterole ceferino, unspecified (ICD-10 - E78.00) 11/04/2024 BMI 30.0-30.9,adult (ICD-10 - Z68.30) Plan Of Treatment Medication Medication Name Sig Start Date Stop Date Notes Gabapentin 100 MG 2 cap(s) orally 2 ti mes a day; Duration: 30 day(s) 11/04/2024 Donepezil HCl 10 MG 1 tab(s) orally once a day (at bedtime) Ezetimibe 10 MG 1 tab(s) orally once a day Lisinopril 10 MG 1 tablet Orally Once a day; Duration: 90 days Pravastatin Sodium 40 MG TAKE 1 TABLET BY MOUTH ONCE DAILY Next Appt Details Follow Up: 4 Months, Reason: Provider Name:Destinee Green , 02/28/2025 02:30:00 PM, [address] [facility], [address], [place], [phone], Progress Notes * ZAKIA EARLY:1940 (84 yo F)Acc No.[id number]:11/04/2024 Progress Notes Patient: GERALDO LYONS Provider: Destinee Iqbal M.D. :1940 A ge:84 Y S ex:Female Date:11/04/2024 Address:[address] [place], [place] [address] K [id number] Subjective: * Chief Complaints: * 1 . 4 week f/u. * HPI: H ip/Thigh: Pt is here for a follow up on hip and leg pain. After leaving off Statin she states her pain is about the same. Pt rates her pain about 6/10. Pt is not fasting. Pt needs a refill of Gabapentin sent to [facility]. 84 year old female presents with c/o hip pain l eft. c/o radiation of pain l eft leg. U rology: Has nephrology appt 11/12/24, Dr. Maradiaga. * ROS: D ERMATOLOGY: no R semaj. [...] orally 2 times a day , Taking Gabapentin 100 MG Capsule 2 cap(s) orally 2 times a day , Taking hydroCHLOROthiazide 12.5 MG Capsule 1 cap(s) orally every other day , Taking Donepezil HCl 10 MG Tablet 1 tab(s) orally once a day (at bedtime) , Taking Memantine HCl ER 14 MG Capsule Extended Release 24 Hour 1 capsule Orally Once a day , Taking Metoprolol Succinate ER 50 MG Tablet Extended Release 24 Hour 1 tab(s) orally once a day , Taking Lisinopril 10 MG Tablet 1 tablet Orally Once a day , Taking rOPINIRole HCl 1 MG Tablet take 1 tablet by mouth every morning , 1 tab in afternoon and 2 tablets at bedtime as directed orally as directed , Medication List reviewed and reconciled with the patient * Allergies: P enicillin. Objective: * Vitals: W t: 154.0, Temp: 98.0, BP: 160/72, HR: 62, O2 Sat: 98% on RA, Nurse: MIREYA, Ht: 60, BMI:30.07. * Examination: G eneral Examination: General Appearance: N AD. H EENT: e yes puffy. Appears pale. O ral cavity: n o lesions, mucosa moist and WNL, no erythema. N chito: ?supple, no lymphadenopathy. C hest: n ormal shape and expansion. H eart: R SR, today. L ungs: c lear to auscultation. A bdomen: soft and nontender. N eurologic Exam: I ntact, gait normal. S kin: n ormal, no rash. P eripheral pulses: n ormal . B ack: mild dorsal kyphosis. E xtremities: M inimal leg edema. ? Assessment: * Assessment: 1. S tage 3b chronic kidney disease - N18.32 2 . D ementia in other diseases classified elsewhere, unspecified severity, without behavioral disturbance, psychotic disturbance, mood disturbance, and anxiety - F02.80 3 . C hronic fatigue - R53.82 4 . H x of iron deficiency anemia - Z86.2 5 . P ain of lower extremity, unspecified laterality - M79.606 6 . E ssential hypertension - I10 ?7. M lynda loss - R41.3 8 . P ure hypercholesterolemia, unspecified - E78.[address] 30.0-30.9,adult - Z68.30 Plan: * Treatment: 2. E ssential hypertension Refill Lisinopril Tablet, 10 MG, 1 tablet, Orally, Once a day, 90 days, 90 Tablet, Refills 1. ? L AB: P-Comprehensive Metabolic Panel (CMP) (Collection Date & Time - 11/04/2024 01:16 PM) g cal 108, bun 34, Cr 1.99, gfr 24 Value Reference Range A /G Ratio 1.8 1.1-2.5 - * A lbumin 4.1 3.5-5.3 - g/dL * A lkaline Phosphatase 44 35-121 - IU/L * A LT (SGPT) 14 <5-47 - IU/L * A ST (SGOT) 18 <5-40 - IU/L * B ilirubin, Total 0.2 <0.2-1.2 - mg/dL * B UN 34 H 8-23 - mg/dL * C alcium 9.8 8.6-10.4 - mg/dL * C hloride 104 97-108 - mmol/L * C O2 24 22-32 - mmol/L * C reatinine 1.99 H 0.50-1.00 - mg/dL * G lucose 108 H 65-99 - mg/dL * P otassium 4.3 3.5-5.3 - mmol/L * S odium 142 135-145 - mmol/L * P rotein 6.4 6.0-8.3 - g/dL * e GFR by Creatinine 24 L >59 - mL/min/1.73m2 * Terra Mclean 01/07/2025 09:34 :53 AM EDT > See phone encounter 3.?Memory loss? Refill Donepezil HCl Tablet, 10 MG, 1 tab(s), orally, once a day (at bedtime), 90, Refills 1.? 4.?Pure hypercholesterolemia, unspecified? Resume Pravastatin Sodium Tablet, 40 MG, TAKE 1 TABLET BY MOUTH ONCE DAILY;?Resume Ezetimibe Tablet, 10 MG, 1 tab(s), orally, once a day.?? * Procedure Codes: G 2211 Complex e/m visit add on, G8950 PREHTN/HTN BP DOC INDCD F/U DOC, G8753 MOST RECENT SYSTOLIC BP >= 140MM HG, G8754 MOST RECENT DIASTOLIC BP < 90MM HG, 1036F TOBACCO NON-USER * Follow Up: 4 Months * Images: Billing Information: * Visit Code: 41399 Office Visit, Est Pt., Level 4. * Procedure Codes: G2211 Complex e/m visit add on. G8950 PREHTN/HTN BP DOC INDCD F/U DOC. G8753 MOST RECENT SYSTOLIC BP >= 140MM HG. G8754 MOST RECENT DIASTOLIC BP < 90MM HG. 1036F TOBACCO NON-USER. * Electronic signature of Destinee Iqbal MD on 02/11/2025 at 08:45 AM EDT Sign off status: Pending * Provider: Destinee Iqbal M.D. Date: 0 11/04/2024 Generated for Anikai ng/Fapascualg/eTransmitting on: 0 02/11/2025 08:45 AM EDT History and Physical Notes * HPI (History of Present Illness) Category Sub-Category Detail Notes Category Not es Hip/Thigh radiation of pain left leg hip pain left Urology Has nephrology appt 11/12/24, Dr. Maradiaga Examination Category Sub-Category Detail Notes Category Not es General Examination HEENT: eyes puffy. Appears p floridalma Heart: RSR, today Lungs: clear to auscultatio n Abdomen: soft and nontender Extremities: Minimal leg edema General Appearance: NAD Skin: normal, no rash Neurologic Exam: Intact, gait normal Neck: supple, no lymphaden opathy Oral cavity: no lesions, mucosa m oist and WNL, no erythema Peripheral pulses: normal Back: mild dorsal kyphosis Chest: normal shape and exp ansion
--- OUTSIDE RECORDS SUMMARY | 2025-01-28 10:00 | XMS_ITS ---
[facility] Address [address] [facility] [address] [place] [phone] Care Team Providers Care Director Equipment Name Role Phone Destinee Iqbal Primary Care Provider Myranda Martins Unavailable [phone] Allergies Allergen (clinical drug ingredient) Drug/Non Drug Allergy documented on EMR Reaction Allergy Type Onset Date Status Penicillin Unknown Drug Allergy Active Results Component Value Reference Range Notes X ray : Hip and LS spine, le ft Reviewed date:02/04/2025 12:53:03 PM Interpretation: Performing Lab: Notes/Report: REASON FOR VISIT fall, may need xray Medications Medication SIG (Take, Route, Frequency, Duration) Notes Start Date End Date Status Aspirin 81 MG 1 tab(s) orally once a day; Duration: 30 day(s) Active Ferrous Sulfate 325 (65 Fe) MG 1 tab(s) orally 2 times a day 03/03/2014 Active rOPINIRole HCl 1 MG 1 tablet by mouth every morning , 1 tablet in afternoon and 2 tablets at bedtime as directed orally as directed; Duration: 90 days Active Multivitamin - 1 tablet Orally Once a day; Duration: 30 day(s) Active Ezetimibe 10 MG 1 tab(s) orally once a day Active Pravastatin Sodium 40 MG TAKE 1 TABLET B Y MOUTH ONCE DAILY Active Donepezil HCl 10 MG 1 tab(s) orally once a day (at bedtime) Active Gabapentin 100 MG 2 cap(s) orally 2 times a day; Duration: 30 day(s) 11/04/2024 Active Metoprolol Succinate ER 50 MG 1 tab(s) o rally once a day; Duration: 90 days Active Lisinopril 10 MG 1 tablet Orally Once a day; Duration: 90 days Active hydroCHLOROthiazide 12.5 MG 1 cap(s) ora lly every other day; Duration: 90 days Active Memantine HCl ER 14 MG 1 capsule Orally Once a day; Duration: 90 days 04/26/2024 Active Vital Signs Blood pressure systolic 140 mm Hg 01/29/20 25 Blood pressure diastolic 82 mm Hg 025 Heart Rate 59 /min 01/28/2025 Height 60 in 01/28/2025 Weight 145.2 lbs 01/28/2025 BMI 28.35 kg/m2 01/28/2025 Encounters Encounter Location Date Provider Diagnosis [facility] [address] [facility] [address] [place] [id number] 01/28/2025 Myranda Martins Unspecified fall, initial encounter W19.XXXA ; Left hip pain M25.[address] in unspecified non-institutional (private) residence as the place of occurrence of the external cause Y92.009 Assessments Encounter Date Diagnosis (ICD Code) Assessment Notes Treatment Notes Treatment Clinical Notes Section Notes 01/28/2025 Unspecified fall, initial encounter (ICD-10 - W19.XXXA) 01/28/2025 Left hip pain (ICD-10 - M25.552) 01/28/[address] in unspecified non-institutiona l (private) residence as the place of occurrence of the external cause (ICD-10 - Y92.009) Plan Of Treatment Next Appt Details Follow Up: via phone to repo rt test results, Reason: Provider Name:Destinee Green er, 02/28/2025 02:30:00 PM, [address] [facility], [address], [place], [phone], Progress Notes * JENNY EARLYDOB:1940 (84 yo F)Acc No.[id number]:01/28/2025 Progress Notes Patient: Manuel JENNY HINKLE Provider: KIAN Russell :1940 A ge:84 Y S ex:Female Date:01/28/2025 Address:[address] [place] [address] [id number] Pcp:Destinee Iqbal Subjective: * Chief Complaints: * 1 . Fall, may need xray. * HPI: H ip/Thigh: 84 year old female presents with c/o hip pain P t sts she was walking down the hallway at her house and sts she kind of sat down and then got back up, and sts she would like to see if she may need an xray done to be safe. Pt sts she does have some hip pain on the lt side, but sts she has always had this. * ROS: D ERMATOLOGY: no R semaj. [...] cap(s) orally every other day , Taking Memantine HCl ER 14 MG Capsule Extended Release 24 Hour 1 capsule Orally Once a day , Taking Metoprolol Succinate ER 50 MG Tablet Extended Release 24 Hour 1 tab(s) orally once a day , Taking Lisinopril 10 MG Tablet 1 tablet Orally Once a day , Taking Donepezil HCl 10 MG Tablet 1 tab(s) orally once a day (at bedtime) , Taking Gabapentin 100 MG Capsule 2 cap(s) orally 2 times a day , Taking Pravastatin Sodium 40 MG Tablet TAKE 1 TABLET BY MOUTH ONCE DAILY , Taking Ezetimibe 10 MG Tablet 1 tab(s) orally once a day , Taking rOPINIRole HCl 1 MG Tablet 1 tablet by mouth every morning , 1 tablet in afternoon and 2 tablets at bedtime as directed orally as directed , Medication List reviewed and reconciled with the patient * Allergies: P enicillin. Objective: * Vitals: W t: 145.2, Temp: 97.9, BP: 140/82, HR: 59, O2 Sat: 97% on RA, Nurse: hcris/cariltos, Ht: 60, BMI:28.35. * Examination: G eneral Examination: General Appearance: N AD. C hest: n ormal shape and expansion. H eart: R SR. L ungs: c lear to auscultation. B ack: m ild ttp along the lower lumbar spine, full ROM. E xtremities: n o leg edema, there is no tenderness along the bilateral knees, there is mild ttp along the left piriformis area. Assessment: * Assessment: 1. L eft hip pain - M25.552 (Primary) 2 . U nspecified fall, initial encounter - W19.XXXA [address] in unspecified non-institutional (private) residence as the place of occurrence of the external cause - Y92.009 Plan: * Treatment: * Procedure Codes: G 2211 Complex e/m visit add on, 1036F TOBACCO NON-USER * Follow Up: v ia phone to report test results * Images: Billing Information: * Visit Code: 04411 Office Visit, Est Pt., Level 3. * Procedure Codes: G2211 Complex e/m visit add on. 1036F TOBACCO NON-USER. * Electronic signature of KIAN Rey on 02/11/2025 at 08:45 AM EDT Sign off status: Pending * Provider: KIAN Russell Date: 0 01/28/2025 Generated for Allie pool/Desirae/Deondreransmitting on: 0 02/11/2025 08:45 AM EDT History and Physical Notes * HPI (History of Present Illness) Category Sub-Category Detail Notes Category Not es Hip/Thigh hip pain Pt sts she was w alking down the hallway at her house and sts she kind of sat down and then got back up, and sts she would like to see if she may need an xray done to be safe. Pt sts she does have some hip pain on the lt side, but sts she has always had this Examination Category Sub-Category Detail Notes Category Not es General Examination Heart: RSR Lungs: clear to auscultatio n Extremities: no leg edema, there is no tenderness along the bilateral knees, there is mild ttp along the left piriformis area General Appearance: NAD Back: mild ttp along the l ower lumbar spine, full ROM Chest: normal shape and exp ansion
--- NOTE | 2025-02-11 08:35 | XR_ITS ---
FINAL REPORT TECHNIQUE: Bone densitometry calculations of the lumbar spine and left hip were obtained. CLINICAL HISTORY: SCREENING COMPARISON: 08/12/2022 FINDINGS: Using L1-4, the bone mineral density of the spine is 1.187 g/cm2, corresponding to T-score of 1.3 and a Z score of 4.1. This is within the range of normal limits. Previously was 1.261 with a T-score of 1.9. Using the left hip, the bone mineral density of the femoral neck is 0.904 g/cm2, corresponding to a T-score of -0.3 and a Z-score of 2.0. This is within the range of normal limits. Previously was 0.865 with a T-score of -0.6. FRAX not reported because all T-scores at or above -1.0. NOTE: T-score: Standard deviation compared with peak bone mass of young adult mean. *Following the recommendations of the International Society of Bone densitometry, classification of hip BMD is based on the lower of two T-scores; total hip or femoral neck. IMPRESSION: 1. Bone mineral density of the lumbar spine within the range of normal limits. 2. Bone mineral density of the left femoral neck within the range of normal limits. Reviewed, Interpreted and Dictated by Loren Crain MD Transcribed by Diamante Franks Authenticated and [facility]
--- OUTSIDE RECORDS SUMMARY | 2025-02-11 08:45 | XMS_ITS ---
Author Organization Unknown Results OrderDate OrderTestName ResultName ResultDate Value Units Range AbnormalFlag ResultStatus ObservationNotes TestCode ResultCode DateRecorded AccessionNumber DiagnosticSectionCode DiagnosticSectionName Sequence Interpretation Cust om 04/26/2024 00:00:00 P-TSH TSH 5507-47-63Z55:00:00 2.25 mU/L 0.43- 5.25 - mU/L Reviewed Terra Mclean 04/27/2024 10:36:48 AM > See phone encounter P-TSH 04/26/2024 00:00: 00:00:00P-Comprehensive Metabolic Panel (CMP)eGFR by Zeukignmpf0964-70-31D07:00:0027mL/min/1.73m2>59 - mL/min/1.14y7RMeqsmljaTerra Travis 04/27/2024 10:36:48 AM > See phone encounter Coding P-Comprehensive Metabolic Pa adair (CMP) 04/26/2024 00:00: 00:00:00P-Comprehensive Metabolic Panel (CMP) Qvtcoal7083-79-20X55:00:006.9g/dL6.0-8.3 - g/dLReTerra Abdullahi 04/27/2024 10:36:48 AM > See phone encounter Coding P-Comprehensive Metabolic Pa adair (CMP) 04/26/2024 00:00: 00:00:00P-Comprehensive Metabolic Panel (CMP) Cctvtm8964-07-35W14:00:26322tgbf/S619-416 - mmol/LRevTerra Castillo 04/27/2024 10:36:48 AM > See phone encounter Coding P-Comprehensive Metabolic Pa adair (CMP) 04/26/2024 00:00: 00:00:00P-Comprehensive Metabolic Panel (CMP) Vbqzeveop7826-63-04Z00:00:004.5mmol/L3.5-5.3 - mmol/LRTerra Brown 04/27/2024 10:36:48 AM > See phone encounter Coding P-Comprehensive Metabolic Pa adair (CMP) 04/26/2024 00:00:00106/26/2023 00:00:00P-Comprehensive Metabolic Panel (CMP) Snommyf2846-23-77O85:00:0080mg/dL65-99 - mg/dLTerra Pizarro 04/27/2024 10:36:48 AM > See phone encounter Coding P-Comprehensive Metabolic Pa adair (CMP) 04/26/2024 00:00:00106/26/2023 00:00:00P-Comprehensive Metabolic Panel (CMP) Bnenksrjmq4408-68-70K81:00:001.80mg/dL0.50-1.00 - mg/dLTerra Begum 04/27/2024 10:36:48 AM > See phone encounter Coding P-Comprehensive Metabolic Pa adair (CMP) 04/26/2024 00:00:00106/26/2023 00:00:00P-Comprehensive Metabolic Panel (CMP)CO2 5329-95-81P86:00:0025mmol/L22-32 - mmol/LRevTerra Castillo 04/27/2024 10:36:48 AM > See phone encounter Coding P-Comprehensive Metabolic Pa adair (CMP) 04/26/2024 00:00:00106/26/2023 00:00:00P-Comprehensive Metabolic Panel (CMP) Pyojnkgy0153-03-87P35:00:04918kyan/L97-108 - mmol/LRevTerra Castillo 04/27/2024 10:36:48 AM > See phone encounter Coding P-Comprehensive Metabolic Pa adair (CMP) 04/26/2024 00:00:00106/26/2023 00:00:00P-Comprehensive Metabolic Panel (CMP) Ilwhiqm3089-61-35R86:00:0011.0mg/dL8.6-10.4 - mg/dLHReviewedWhalen,Terra 04/27/2024 10:36:48 AM > See phone encounter Coding P-Comprehensive Metabolic Pa adair (CMP) 04/26/2024 00:00:00106/26/2023 00:00:00P-Comprehensive Metabolic Panel (CMP)BUN 3861-76-12D34:00:0029mg/dL8-23 - mg/dLTerra Begum 04/27/2024 10:36:48 AM > See phone encounter Coding P-Comprehensive Metabolic Pa adair (CMP) 04/26/2024 00:00:00106/26/2023 00:00:00P-Comprehensive Metabolic Panel (CMP) Bilirubin, Eozgx7417-78-18Y57:00:000.2mg/dL<0.2-1.2 - mg/dLTerra Pizarro 04/27/2024 10:36:48 AM > See phone encounter Coding P-Comprehensive Metabolic Pa adair (CMP) 04/26/2024 00:00:00106/26/2023 00:00:00P-Comprehensive Metabolic Panel (CMP)AST (SGOT)6721-31-86P66:00:0023IU/L<5-40 - IU/LRevTerra Castillo 04/27/2024 10:36:48 AM > See phone encounter Coding P-Comprehensive Metabolic Pa adair (CMP) 04/26/2024 00:00: 00:00:00P-Comprehensive Metabolic Panel (CMP)ALT (SGPT)1109-70-31M14:00:0022IU/L<5-47 - IU/LRevTerra Castillo 04/27/2024 10:36:48 AM > See phone encounter Coding P-Comprehensive Metabolic Pa adair (CMP) 04/26/2024 00:00:00106/26/2023 00:00:00P-Comprehensive Metabolic Panel (CMP) Alkaline Pllesbncagp1158-92-28K34:00:0043IU/L35-121 - IU/LRevTerra Castillo 04/27/2024 10:36:48 AM > See phone encounter Coding P-Comprehensive Metabolic Pa adair (CMP) 04/26/2024 00:00:00106/26/2023 00:00:00P-Comprehensive Metabolic Panel (CMP) Croegkk0361-28-43J25:00:004.4g/dL3.5-5.3 - g/dLReTerra Abdullahi 04/27/2024 10:36:48 AM > See phone encounter Coding P-Comprehensive Metabolic Pa adair (CMP) 04/26/2024 00:00:00106/26/2023 00:00:00P-Comprehensive Metabolic Panel (CMP)A/G Zuxep8517-40-53X61:00:001.81.1-2.5 -Terra Pizarro 04/27/2024 10:36:48 AM > See phone encounter Coding P-Comprehensive Metabolic Pa adair (CMP) 04/26/2024 00:00:00106/26/2023 00:00:00P-Vitamin X27Tjaiwaf B12 4766-93-33D63:00:62023rf/kE815-2838 - pg/mLRevieTerra Aguilar 04/27/2024 10:36:48 AM > See phone encounter Coding P-Vitamin B12 04/26/2024 00:00:00106/26/2023 00:00:00CBC Venipuncture (in house)[place] 1717-50-30K25:00:74786864 - 400ReJessica Jeffers 04/26/2024 2:26:16 PM > Coding CBC Venipuncture (in house) 04/26/2024 00:00:00106/26/2023 00:00:00CBC Venipuncture (in house)[facility] 2304-13-94X41:00:0034.031 - 38Jessica Weiss 04/26/2024 2:26:16 PM > Coding CBC Venipuncture (in house) 04/26/2024 00:00:00106/26/2023 00:00:00CBC Venipuncture (in house)[facility] 7560-08-32X80:00:0032.325 - 35RevieweJessica Quinn 04/26/2024 2:26:16 PM > Coding CBC Venipuncture (in house) 04/26/2024 00:00:00106/26/2023 00:00:00CBC Venipuncture (in house)mcv 9440-50-10E76:00:0095.075 - 100RevieweJessica Quinn 04/26/2024 2:26:16 PM > Coding CBC Venipuncture (in house) 04/26/2024 00:00:00106/26/2023 00:00:00CBC Venipuncture (in house)hct 0765-01-22W71:00:0037.935 - 55RevieweJessica Quinn 04/26/2024 2:26:16 PM > Coding CBC Venipuncture (in house) 04/26/2024 00:00:00106/26/2023 00:00:00CBC Venipuncture (in house)hgb 4830-65-29I73:00:0012.911.5 - 16.5RevieweJessica Quinn 04/26/2024 2:26:16 PM > Coding CBC Venipuncture (in house) 04/26/2024 00:00:00106/26/2023 00:00:00CBC Venipuncture (in house)rbc 3455-22-31Y93:00:003.993.5 - 5.5RevieweJessica Quinn 04/26/2024 2:26:16 PM > Coding CBC Venipuncture (in house) 04/26/2024 00:00:00106/26/2023 00:00:00CBC Venipuncture (in house)gran 7079-45-40K95:00:0072.5%35 - 80RevieweJessica Quinn 04/26/2024 2:26:16 PM > Coding CBC Venipuncture (in house) 04/26/2024 00:00:00106/26/2023 00:00:00CBC Venipuncture (in house)mid 4890-29-96O03:00:005.7%2 - 15RevieweCheyenneJessica 04/26/2024 2:26:16 PM > Coding CBC Venipuncture (in house) 04/26/2024 00:00:00106/26/2023 00:00:00CBC Venipuncture (in house)lymph 1076-98-63L62:00:0021.8%15 - 50RevieweCheyenneJessica 04/26/2024 2:26:16 PM > Coding CBC Venipuncture (in house) 04/26/2024 00:00:00106/26/2023 00:00:00CBC Venipuncture (in house)wbc 0814-86-16Z39:00:008.83.5 - 10ReZeyadJessica 04/26/2024 2:26:16 PM > Coding CBC Venipuncture (in house) 04/26/2024 00:00: 00:00:00P-Basic Metabolic Panel (BMP)eGFR by Xdjjqmnrqz9921-36-59I77:00:0018mL/min/1.73m2>59 - mL/min/1.31b8MIoxholpgeTrra Martin 08/06/2024 8:50:31 AM > See phone encounter Coding P-Basic Metabolic Panel (BMP ) 08/05/2024 00:00: 00:00:00P-Basic Metabolic Panel (BMP)Sodium 0675-46-68B50:00:35783rfzk/M865-237 - mmol/Terra José 08/06/2024 8:50:31 AM > See phone encounter Coding P-Basic Metabolic Panel (BMP ) 08/05/2024 00:00: 00:00:00P-Basic Metabolic Panel (BMP)Potassium 0315-22-64M62:00:004.7mmol/L3.5-5.3 - mmol/LRTerra Brown 08/06/2024 8:50:31 AM > See phone encounter Coding P-Basic Metabolic Panel (BMP ) 08/05/2024 00:00: 00:00:00P-Basic Metabolic Panel (BMP)Glucose 0286-83-10O94:00:27446vm/dL65-99 - mg/dLTerra Begum 08/06/2024 8:50:31 AM > See phone encounter Coding P-Basic Metabolic Panel (BMP ) 08/05/2024 00:00: 00:00:00P-Basic Metabolic Panel (BMP)Creatinine 5071-76-44X02:00:002.59mg/dL0.50-1.00 - mg/dLTerra Begum 08/06/2024 8:50:31 AM > See phone encounter Coding P-Basic Metabolic Panel (BMP ) 08/05/2024 00:00: 00:00:00P-Basic Metabolic Panel (BMP)CO2 0606-08-05N37:00:0017mmol/L22-32 - mmol/LLTerra Pizarro 08/06/2024 8:50:31 AM > See phone encounter Coding P-Basic Metabolic Panel (BMP ) 08/05/2024 00:00: 00:00:00P-Basic Metabolic Panel (BMP)Chloride 1453-43-63B05:00:96564mfzb/L97-108 - mmol/LHTerra Pizarro 08/06/2024 8:50:31 AM > See phone encounter Coding P-Basic Metabolic Panel (BMP ) 08/05/2024 00:00: 00:00:00P-Basic Metabolic Panel (BMP)Calcium 7972-13-36J80:00:009.5mg/dL8.6-10.4 - mg/dLTerra Pizarro 08/06/2024 8:50:31 AM > See phone encounter Coding P-Basic Metabolic Panel (BMP ) 08/05/2024 00:00: 00:00:00P-Basic Metabolic Panel (BMP)BUN 8022-49-18H61:00:0040mg/dL8-23 - mg/dLTerra Begum 08/06/2024 8:50:31 AM > See phone encounter Coding P-Basic Metabolic Panel (BMP ) 08/05/2024 00:00: 00:00:00P-Comprehensive Metabolic Panel (CMP)eGFR by Ojkqlfekor7549-47-02Q00:00:0024mL/min/1.73m2>59 - mL/min/1.52t6QQwlv Coding P-Comprehensive Metabolic Pa adair (CMP) 11/04/2024 00:00: 00:00:00P-Comprehensive Metabolic Panel (CMP) Jeajiib7686-14-80C66:00:006.4g/dL6.0-8.3 - g/dLOpen Coding P-Comprehensive Metabolic Pa adair (CMP) 11/04/2024 00:00: 00:00:00P-Comprehensive Metabolic Panel (CMP) Vkhgpw4645-93-25B17:00:58571ezrk/J137-192 - mmol/LOpen Coding P-Comprehensive Metabolic Pa adair (CMP) 11/04/2024 00:00: 00:00:00P-Comprehensive Metabolic Panel (CMP) Iakjhdjac4567-23-99O47:00:004.3mmol/L3.5-5.3 - mmol/LOpen Coding P-Comprehensive Metabolic Pa adair (CMP) 11/04/2024 00:00: 00:00:00P-Comprehensive Metabolic Panel (CMP) Kwcuezt4756-93-09U00:00:22495dx/dL65-99 - mg/dLHOpen Coding P-Comprehensive Metabolic Pa adair (CMP) 11/04/2024 00:00: 00:00:00P-Comprehensive Metabolic Panel (CMP) Ozwwzsqeoh8476-90-45W33:00:001.99mg/dL0.50-1.00 - mg/dLHOpen Coding P-Comprehensive Metabolic Pa adair (CMP) 11/04/2024 00:00: 00:00:00P-Comprehensive Metabolic Panel (CMP)CO2 4843-28-04R26:00:0024mmol/L22-32 - mmol/LOpen Coding P-Comprehensive Metabolic Pa adair (CMP) 11/04/2024 00:00: 00:00:00P-Comprehensive Metabolic Panel (CMP) Vursjzxg1118-89-77S50:00:56828npzs/L97-108 - mmol/LOpen Coding P-Comprehensive Metabolic Pa adair (CMP) 11/04/2024 00:00: 00:00:00P-Comprehensive Metabolic Panel (CMP) Itmulbj4229-72-07Q89:00:009.8mg/dL8.6-10.4 - mg/dLOpen Coding P-Comprehensive Metabolic Pa adair (CMP) 11/04/2024 00:00: 00:00:00P-Comprehensive Metabolic Panel (CMP)BUN 4014-41-37K65:00:0034mg/dL8-23 - mg/dLHOpen Coding P-Comprehensive Metabolic Pa adair (CMP) 11/04/2024 00:00: 00:00:00P-Comprehensive Metabolic Panel (CMP) Bilirubin, Nopla6592-22-57L00:00:000.2mg/dL<0.2-1.2 - mg/dLOpen Coding P-Comprehensive Metabolic Pa adair (CMP) 11/04/2024 00:00: 00:00:00P-Comprehensive Metabolic Panel (CMP)AST (SGOT)2597-18-94N02:00:0018IU/L<5-40 - IU/LOpen Coding P-Comprehensive Metabolic Pa adair (CMP) 11/04/2024 00:00: 00:00:00P-Comprehensive Metabolic Panel (CMP)ALT (SGPT)9268-98-12F15:00:0014IU/L<5-47 - IU/LOpen Coding P-Comprehensive Metabolic Pa adair (CMP) 11/04/2024 00:00: 00:00:00P-Comprehensive Metabolic Panel (CMP) Alkaline Xxttperbrqg5385-40-70Z50:00:0044IU/L35-121 - IU/LOpen Coding P-Comprehensive Metabolic Pa adair (CMP) 11/04/2024 00:00: 00:00:00P-Comprehensive Metabolic Panel (CMP) Ahouqzs1225-53-02B18:00:004.1g/dL3.5-5.3 - g/dLOpen Coding P-Comprehensive Metabolic Pa adair (CMP) 11/04/2024 00:00: 00:00:00P-Comprehensive Metabolic Panel (CMP)A/G Agxpr7056-35-57L88:00:001.81.1-2.5 -Open Coding P-Comprehensive Metabolic Pa adair (CMP) 11/04/2024 00:00:00
--- OUTSIDE RECORDS SUMMARY | 2025-02-11 08:45 | XMS_ITS | Clinical Summary ---
Author Organization Healthcare Address [address] [place] [address] Care Team Providers Care Administrative Supervisor Name Role Phone Dwain Iqbal MD Primary Care Provider Allergies Active Allergy Reactions Criticality Noted Date [...] Description 11/12/2024 9:40 AM EDT Office Visit [facility] [address] [place] [phone] Freedom Maradiaga MD CKD stage 3b, GFR 30-44 ml/min ([facility]) (Primary Dx); Chronic kidney disease-mineral and bone disorder (CKD-MBD); Anemia in stage 3b chronic kidney disease; Hypertensive chronic kidney disease with stage 1 through stage 4 chronic kidney disease, or unspecified chronic kidney disease; Stage 3b chronic kidney disease ([facility]) 11/12/2024 Travel from Last 3 Months Immunizations [...] Health Maintenance Due Date Last Done Comments [facility]-Depression Screening 1940 [facility]-Medicare Annual Wellness (AWV) 1940 [facility]-Infant/Child/Adol SDOH Screenings 1940 [facility]- SDOH Screenings 1957 [facility]-Adult SDOH Screenings 1957 [facility]-Zoster Vaccines (2 of 3) 05/29/2007 04/03/2007 [facility]-RSV Vaccine: 60+ Years or (1 - 1-dose 75+ series) 2014 [facility]-DTaP,Tdap,and Td Vaccines (2 - Tdap) 05/15/2016 05/15/2006 [facility]-Bone Density Scan 06/21/2016 06/21/2014 CRP-HDFLQ-13 Vaccine ( season) 2024 03/06/2022, 04/25/2021, 08/16/2020, [...] patient's age to complete this topic Insurance [facility] MEDICARE Care Teams Administrative Supervisor Relationship Specialty Start Date End Date Dwain Iqbal MD [address] [place] [address] [place] [phone] PCP - General 03/14/22
--- OUTSIDE RECORDS SUMMARY | 2025-02-11 08:45 | XMS_ITS | Patient Health Record ---
Author Organization [facility] Address [address] [facility] [facility] [address] [place] [address] Care Team Providers Care Cash Processor Name Role Phone Winifred Bacon Unavailable [phone] Reason For Referral No Information Social History [...] W/U Status Risk Notes Problem Atrophic vaginitis (40757867) Atrophic vaginitis (N95.2) 11/16/19 Active confirmed Vaginal atrophy Problem Hormone replacement therapy (653062933) Counseling for estrogen replacement therapy (Z79.890) 11/16/19 Active confirmed Hormone replacement therapy Problem Menopause (780689436) *Menopausal and female climacteric states (Code also, associated symptoms) (N95.1) 11/16/19 20 Active confirmed Menopausal and female climacteric states Plan Of Treatment No Information Medical (General) History Medical History History ICD Code HTN UTI ESTROGEL 0.75 MG/1.25 GM (0.06%) TRANSDE RMAL GEL, TRANS Surgical History Surgery Date(Month/Year) None listed
--- OUTSIDE RECORDS SUMMARY | 2025-02-11 08:45 | XMS_ITS | Clinical Summary ---
[facility] Address [address] [place] [address] Care Team Providers Care Pit Tanner Name Role Phone Dwain Iqbal MD Primary Care Provider [phone] Family History Medical History Relation Name Comments [...] SCAN 06/21/2016 06/21/2014 COVID-19 Vaccine (1 - season) 2025 INFLUENZA VACCINE 03/09/2025 04/22/2019, , 04/10/2017 Procedures [...] A DXA scan was performed using a [employer] densitometer. The lumbar spine was evaluated as [...] fall-prevention measurements. The National Osteoporosis Foundation recommends (http://www.nof.org/hcp/practice/gliycnou-aln-osqtvrpk-guidelines/clinic ans-guide) that FDA-approved medical therapies be considered [...] [employer]ERS Released Date Time- 06/21/14 1410 Physical Testing Supervisor- F.M. Ernesto Bender MD IMG DXA ORDERABLES Final Result from Last 3 Months or Most Recently Relevant to Health Maintenance Insurance MEDICARE A & B Member Subscriber Plan / Payer (Ef fective 2004-Present) Name:Maia Perkins Member ID:[id number] Relation to Subscriber:Self Name:Maia Perkins Subscriber ID:[id number] Payer ID:[id number] Group ID:Not on file Type:Not on file Address: [address] [employer] Care Teams Pit Tanner Relationship Specialty Start Date End Date Dwain Iqbal MD [address] [facility] [address] [place] [address] PCP - General Family Medicine 02/21/16
--- OUTSIDE RECORDS SUMMARY | 2025-02-11 08:46 | XMS_ITS | Patient Health Record ---
Author Organization [facility] Address [address] [facility] [address] [place] [phone] Care Team Providers Care High Density Press Operator Name Role Phone Destinee Iqbal Primary Care Provider Myranda Martins Unavailable [phone] Allergies Allergen (clinical drug ingredient) Drug/Non Drug Allergy documented on EMR Reaction Allergy Type Onset Date Status Penicillin Unknown Drug Allergy Active Results Component Value Reference Range Notes P-Comprehensive Metabolic Pa adair (CMP) Reviewed date:01/07/2025 09:35:01 AM Interpretation:gluc 108, bun 34, Cr 1.99, gfr 24 Performing Lab: Notes/Report: Test performed by [facility], [address] , [address], [place] [address] Adolfo Chu MD, Pellet Mill Operator CLIA: [id number] Sodium 142 135-145 mmol/L Potassium 4.3 3.5-5.3 [...] 0.2 <0.2-1.2 mg/dL A/G Ratio 1.8 1.1-2.5 X ray : Hip and LS spine, le ft Reviewed date:02/04/2025 12:53:03 PM Interpretation: Performing Lab: Notes/Report: Mammogram Reviewed date:03/10/2024 04:42:49 PM Interpretation:Negative Performing Lab: Notes/Report: Negative result Negative CBC Venipuncture (in house) Reviewed date:04/27/2024 09:27:18 [...] Interpretation:Normal Performing Lab: Notes/Report: Test performed by [facility] [address] [place] [address] , [address], [place] [address] Adolfo Chu MD, Pellet Mill Operator CLIA: [id number] Vitamin B12 380 243-8533 pg/mL P-Comprehensive Metabolic Pa adair (CMP) Reviewed date:04/27/2024 10:36:59 AM Interpretation:bun 29, Cr 1.8, Ca 11, gfr 27 Performing Lab: Notes/Report: Test performed by [facility] [address] [place] [address] , [address], [place] [address] Adolfo Chu MD, Pellet Mill Operator CLIA: [id number] Sodium 143 135-145 mmol/L Potassium 4.5 3.5-5.3 [...] Interpretation:Normal Performing Lab: Notes/Report: Test performed by [facility] [address] , [place] [address] Adolfo Chu MD, Pellet Mill Operator CLIA: [id number] TSH 2.25 0.43-5.25 mU/L P-Basic Metabolic Panel (BMP ) Reviewed date:08/06/2024 08:50:36 AM Interpretation:chol 111, co2- 17, gluc 106, bun 40, Cr 2.59, gfr 18 Performing Lab: Notes/Report: Test performed by [facility] [address] [place] [address] , [place] [address] Adolfo Chu MD, Pellet Mill Operator CLIA: [id number] Sodium 144 135-145 mmol/L Potassium 4.7 3.5-5.3 mmol/L Chloride 111 97-108 mmol/L CO2 17 22-32 mmol/L Glucose 106 65-99 mg/dL BUN 40 8-23 mg/dL Creatinine 2.59 0.50-1.00 mg/dL Calcium 9.5 8.6-10.4 mg/dL eGFR by Creatinine 18 >59 mL/min/1.73m2 EKG Reviewed date:08/06/2024 08:50:36 AM Interpretation: Performing Lab: Notes/Report: Medications Medication SIG (Take, Route, Frequency, Duration) [...] (6mos and older)-trivalent IM Intramuscular 03/26/2010 Administered pKohsgwn-uvekqztac-qoydcgk e pts. IM Intramuscular 03/16/2012 Administered Problems Problem Type SNOMED Code ICD Code Onset Dates Problem Status W/U Status Risk Notes Problem Carotid artery occlusion without infarction (338407109717090) STENOSIS OF CAROTID ARTERY WITHOUT INFARCTION (433.10) Active confirmed Problem Anemia (229718690) Anemia NOS (285.9) Active co nfirmed Problem Essential hypertension (58005035) Essential hypertension (I10) Active confirmed Problem Paresthesia (11016906) Paresthesia (R20.2) Active confirmed Problem Body mass index 30+ - obesity (342266496) BMI 30.0-30.9,adult (Z68.30) Active confirmed Problem Memory loss (75272287) Memory loss (R41.3) Active confirmed Problem Restless legs (17270889) Restless legs (G25.81) Active confirmed Problem Pure hypercholesterolemia (078340650) Pure hypercholesterolemia (E78.0) Active confirmed Problem Reactive depression (situational) (78243870) Situational depression (F43.21) Active confirmed Problem Renal insufficiency (613640701) Renal insufficiency (N28.9) Active confirmed Problem Chronic fatigue syndrome (25833463) Chronic fatigue (R53.82) Active confirmed Problem Occlusion and stenosis of multiple and bilateral cerebral arteries (546195410) Stenosis of both carotid arteries without cerebral infarction (I65.23) Active confirmed Problem Lumbosacral spondylosis without myelopathy (60315991) Osteoarthritis of spine with radiculopathy, lumbar region (M47.26) Active confirmed Problem Cardiac dysrhythmia (844710587) Cardiac dysrhythmia, unspecified (I49.9) Active confirmed Problem Pure hypercholesterolemia (196071538) Pure hypercholesterolemia, unspecified (E78.00) Active confirmed Problem History of iron deficiency anemia (252066635) Hx of iron deficiency anemia (Z86.2) Active confirmed Problem Fibrocystic breast changes (66234323) Fibrocystic breast disease (FCBD), unspecified laterality (N60.19) Active confirmed Problem Tinnitus (38516150) Tinnitus, un specified laterality (H93.19) Active confirmed Problem Disorder of kidney and/or ureter (464118778) Nodule of kidney (N28.89) Active confirmed Problem Chronic kidney disease stage 3B (disorder) (248161970) Stage 3b chronic kidney disease (N18.32) Active confirmed Problem 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) Active confirmed Problem Dementia (48079688) Dementia in other diseases classified elsewhere, unspecified severity, without behavioral disturbance, psychotic disturbance, mood disturbance, and anxiety (F02.80) Active confirmed Problem 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) Active confirmed Vital Signs Heart Rate 59 /min 01/28/2025 Blood pressure diastolic 82 mm Hg 01/28/2025 Height 60 in 01/28/2025 Blood pressure systolic 140 mm Hg 01/28/2025 Weight 145.2 lbs 01/28/2025 BMI 28.35 kg/m2 01/28/2025 Encounters Encounter Location Date Provider Diagnosis [facility] [address] [id number] 02/16/2024 Destinee Iqbal Essential hypertensi on I10 ; Pure hypercholesterolemia E78.0 ; Renal insufficiency N28.9 ; Fibrocystic breast disease (FCBD), unspecified laterality N60.19 and Screening mammogram for breast cancer Z12.31 [facility] [address] [id number] 04/26/2024 Destinee Iqbal Essential hypertensi on I10 ; Restless legs G25.81 ; Memory loss R41.3 ; Renal insufficiency N28.9 and Pure hypercholesterolemia, unspecified E78.00 [facility] [address] [id number] 08/05/2024 Destinee Iqbal Essential hypertensi on I10 ; Stage 3b chronic kidney disease N18.32 ; Renal insufficiency N28.9 and Cardiac dysrhythmia, unspecified I49.9 [facility] [address] [place] [id number] 09/03/2024 Destinee Iqbal Stage 3b chronic kid irma disease N18.32 ; Dementia in other diseases classified elsewhere, unspecified severity, without behavioral disturbance, psychotic disturbance, mood disturbance, and anxiety F02.80 ; Memory loss R41.3 and Restless legs G25.81 [facility] [address] [place], [place] [id number] 11/04/2024 Destinee Iqbal Stage 3b chronic kid [...] hypercholesterolemia, unspecified E78.00 and BMI 30.0-30.9,adult Z68.30 [facility] [address] [place], [place] [id number] 01/28/2025 Myranda Martins Unspecified fall, in itial encounter W19.XXXA ; Left hip pain M25.[address] in unspecified non-institutional (private) residence as the place of occurrence of the external cause Y92.009 [facility] [address] [place] [id number] 10/04/2024 Destinee Iqbal Pain of lower extrem ity, unspecified laterality M79.606 ; Restless legs G25.81 ; Renal insufficiency N28.9 ; Memory loss R41.3 ; Chronic fatigue R53.82 ; Other frontotemporal neurocognitive disorder G31.09 ; Pure hypercholesterolemia, unspecified E78.00 and BMI 29.0-29.9,adult Z68.29 [facility] [address] [place], [place] [id number] 04/27/2024 [facility] [address] [place], [place] [id number] 04/29/2024 Destinee Iqbal Knee pain, left M25. 562 [facility] [address] [place] [id number] 08/06/2024 Destinee Iqbal [facility] [address] [facility] [address] [place], [place] [id number] 08/12/2024 Destinee Iqbal Essential hypertensi on I10 [facility] [address] [place], [place] [id number] 09/23/2024 Destinee Iqbal Memory loss R41.3 an d Pure hypercholesterolemia, unspecified E78.00 [facility] [address] [place], [place] [id number] 11/14/2024 Destinee Iqbal Osteopenia M85.80 an d Screening for osteoporosis Z13.820 [facility] [address] [place], [place] [id number] 01/07/2025 Destinee Iqbal Assessments Encounter Date Diagnosis [...] Screening for osteoporosis (ICD-10 - Z13.820) 01/28/2025 Left hip pain (ICD-1 0 - M25.552) 01/28/2025 Unspecified fall, initial encounter (ICD-10 - W19.XXXA) 11/04/2024 Stage 3b chronic kid irma disease (ICD-10 - N18.32) 11/04/2024 Dementia in other diseases classified elsewhere, unspecified severity, without behavioral disturbance, psychotic disturbance, mood disturbance, and anxiety (ICD-10 - F02.80) 01/28/[address] in unspecified non-institutional (private) residence as the place of occurrence of the external cause (ICD-10 - Y92.009) 10/04/2024 Renal insufficiency (ICD-10 - N28.9) 09/23/2024 [...] Test Name Order Date Bone density 11/14/2024 Next Appt Details Provider Name:Destinee Worrell Peter er, 02/28/2025 02:30:00 PM, [address], [address], [place], [place], [id number], Insurance Providers Payer Name Payer Address Payer Phone Subscriber Number Group Number Insured Name Patient Relationship to Insured Coverage Start Date Coverage End Date MEDICARE PART B [address] [address] [place] [id number] GERALDO EARLY Self - patient is the insured [facility] [employer] [address] [place] [address] [phone] [id number] GERALDO EARLY Self - patient is the insured Medical (General) History Medical History History ICD Code hyperlipidemia HCM pelvic relaxation post hx DUB/hysterectomy Hypertension Normal colonoscopy 10/03/05 Dr. Fregoso Tinnitus Colonoscopy 04/18/14 with adenomas, Dr. Harpal Tinocoid vaccine x2 (August 2020) Moderna Surgical History Surgery Date(Month/Year) BTL hysterectomy bilateral cataracts biopsy right breast (calcium deposit) Hospitalization History Reason Date(Month/Year) broken ribs
== END 2025-02-11 23:59 | disposition home or self-care (01) ==
LOC: RAD 08:33
PROVIDERS: PCP Physician Assistant; Visit Provider Family Medicine
DX: M81.0 Age-related osteoporosis without current pathological fracture (principal); M85.80 Other specified disorders of bone density and structure, unspecified site
CPT/HCPCS: 77080